=== PATIENT | male | born 1955 | race American Indian/Alaskan Native ===

== ENCOUNTER 2017-04-25 08:45 | Day surgery (SDC) | payer OTHER ==
[~2017-04-25] VITALS: Ht 177.8 cm; Wt 112.5 kg
[~2017-04-25 08:45] MED LIST: ASPIR-TRIN325 MG PO; FLOMAX0.4 MG PO; LANTUS100 UNITS/ SUB-Q; LIPITOR20 MG PO; LISINOPRIL20 MG PO; MORPHINE SULFAT15 MG PO; NEURONTIN300 MG PO; NORCO 5-325 TA1 EACH PO; NOVOLOG FL100 UNIT/1 SQ; ULTRAM50 MG PO; VITAMIN D250000 UNIT PO
--- NOTE | 2017-04-25 12:00 | NUR ---
04/25/17 1200 Lexie Arambula TO PACU, ORAL AIRWAY IN PLACE. NON RESPONSIVE. BLOOD SUGAR 121.
--- NOTE | 2017-04-25 12:31 | NUR ---
ICED WATER GIVEN. CALL LIGHT W/IN REACH. SANDWICH ORDERED FROM DIETARY.
--- NOTE | 2017-04-25 13:32 | NUR ---
PATIENT EATING LUNCH. GIVEN 1 TAB OF NORCO FOR PAIN. RIGHT KNEE DRESSING CDI. CSM TO RIGHT TOES WNL. IV SITE WNL. SCDs ON. VS CHECKED. CALL LIGHT WITHIN REACH. SISTER AT BEDSIDE.
[2017-04-25] MEDS ORDERED: ULTRAM50 MG PO (13:45)
--- NOTE | 2017-04-25 14:57 | NUR ---
1340: PATIENT ASSISTED OOB AND TO BATHROOM. VOID WITHOUT DIFFICULTY. PATIENT STATES READY TO GO HOME. PATIENT GETTING DRESSED. 1400: IV DC'D WNL. TIP INTACT. DRESSING APPLIED. DISCHARGE INSTRUCTIONS GIVEN TO PATIENT AND SISTER. PATIENT DISCHARGED TO HOME WITH SISTER VIA WHEELCHAIR.
--- NOTE | 2017-04-27 07:09 | OR ---
[facility] [address], [place] [address] Signed DATE OF OPERATION: 04/25/2017 SURGEON: Chelo Olivares MD PREOPERATIVE DIAGNOSIS: Torn medial meniscus, right knee. POSTOPERATIVE DIAGNOSIS: Torn medial meniscus, right knee with area about 8 x 8 mm full-thickness cartilage loss over the weightbearing portion of the medial femoral condyle. PROCEDURE: Right knee arthroscopy with partial medial meniscectomy. ANESTHESIA: General. SPECIMENS AND COMPLICATIONS: There were no specimens or complications. TOURNIQUET TIME: About 20 minutes. WHAT WAS TAKEN: The patient was taken to the operating room. After anesthesia was induced, airway secured, the right lower extremity was positioned prepped and draped in a routine sterile fashion. The leg was exsanguinated with an Esmarch bandage. Pneumatic tourniquet about the thigh was inflated to 300 mmHg pressure. The outflow cannula was inserted superomedially, the arthroscope anterolaterally. An anteromedial portal was created using transillumination and localization with a spinal needle. Diagnostic arthroscopy revealed a hypertrophic synovitis in the suprapatellar pouch. There were some small areas of grade 1 to grade 2 chondral change in the patellofemoral joint. The medial recess was unremarkable, except there was an area over the medial portion of the medial femoral condyle that had been denuded of articular cartilage, although this area did not appear to articulate with the patella. The medial compartment revealed a complex tear of the posterior horn of the medial meniscus and the aforementioned full-thickness chondral loss over the weightbearing portion of the medial femoral condyle. There was some fissuring in the tibial plateau, but no other lesions. A basket forceps was introduced through the anteromedial portal. The meniscal tear was completed. The several fragments were delivered out of the knee and then the edges were contoured with the motorized Electronically Signed By: CHELO OLIVARES MD 04/27/17 0709 PATIENT NAME: CHELO GANNON OPERATIVE REPORT DATE OF : 53 PHYSICIAN: CHELO OLIVARES MD REPORT #: [id number] REPORT IS CONFIDENTIAL AND NOT TO BE RELEASED WITHOUT AUTHORIZATION [facility] [address] [place] [id number] Signed [facility]. Intercondylar notch was unremarkable, as was the lateral compartment and the lateral recess. The knee was copiously irrigated and drained. The portals were closed and sterile dressings applied. The patient was awakened to the recovery room where he arrived in stable condition. Counts were correct and antibiotic protocols were followed. Chelo Olivares MD WFB/MODL /[id number] Electronically Signed By: CHELO OLIVARES MD 04/27/17 0709 PATIENT NAME: CHELO GANNON OPERATIVE REPORT DATE OF : 53 PHYSICIAN: CHELO OLIVARES MD REPORT #: [id number] REPORT IS CONFIDENTIAL AND NOT TO BE RELEASED WITHOUT AUTHORIZATION
== END 2017-04-25 14:00 | disposition home or self-care (01) ==
LOC: DS 08:45 → OPS 08:45 → DS 10:45 → OPS 10:45
PROVIDERS: Orthopaedic Surgery
PROC: 0SBC4ZZ Excision of Right Knee Joint, Percutaneous Endoscopic Approach (ICD-10-PCS; principal; 2017-04-25 10:45)
DX: S83.231A Complex tear of medial meniscus, current injury, right knee, initial encounter (principal); E11.9 Type 2 diabetes mellitus without complications; I51.9 Heart disease, unspecified
CPT/HCPCS: 01400; J0690; J1100; J1885; J2250; J2405; J2704; J3010; J3301; J7120

== ENCOUNTER 2020-05-10 20:04 | Emergency (ER) | payer MEDICARE, OTHER ==
[~2020-05-10] VITALS: Ht 177.8 cm; Wt 112.5 kg
[2020-05-10] MEDS ORDERED: METFORMIN HCL500 M1 PO (20:23)
[2020-05-10] MEDS ORDERED: TRAZODONE HCL50 MG PO (20:24)
== END 2020-05-10 22:40 | disposition home or self-care (01) ==
LOC: ED 20:04
DX: T81.31XA Disruption of external operation (surgical) wound, not elsewhere classified, initial encounter (principal); E11.40 Type 2 diabetes mellitus with diabetic neuropathy, unspecified; I25.2 Old myocardial infarction; E66.9 Obesity, unspecified; F17.200 Nicotine dependence, unspecified, uncomplicated; Z79.899 Other long term (current) drug therapy; Z79.4 Long term (current) use of insulin; Z79.891 Long term (current) use of opiate analgesic
CPT/HCPCS: 99283

== ENCOUNTER 2021-03-15 11:31 | Inpatient (IN) | payer MEDICARE, OTHER ==
[~2021-03-15] VITALS: Ht 177.8 cm; Wt 112.0 kg
[~2021-03-15 11:31] MED LIST changes: +METFORMIN HCL500 M1 PO; +TRAZODONE HCL50 MG PO; -VITAMIN D250000 UNIT PO; +VITAMIN D350 MCG PO
--- OUTSIDE RECORDS SUMMARY | 2021-03-15 11:34 | XMS ---
PreManage Notification: CHELO GANNON Security Regulatory Services Consultant Events No recent Security Events currently on file CRITERIA MET - [facility] CARE PROVIDERS [facility] 03/05/2019-[facility] PHONE: [phone] Elsa has no Care Guidelines for this patient. Care History Medical/Surgical 03/05/2019 [facility] \T\middot;\T\nbsp; PATIENT- [facility] ELIGIBLE \T\middot;\T\nbsp; PLEASE REFER PATIENT TO [facility] FOR NON EMERGENT MEDICAL NEEDS. \T\middot;\ T\nbsp; [facility] CAN SEE PATIENTS SAME DAY FOR APTS IF PATIENT CALLS FIRST THING IN THE MORNING. E.D. VISIT COUNT (12 MO[address] [facility] TOTAL 2 NOTE: Visits indicate total known visits. ED/UCC VISIT TRACKING (12 MO.) 03/15/2021 11:32 [facility] TYPE: Emergency COMPLAINT: - WOUND CARE 05/10/2020 20:05 [facility] TYPE: Emergency COMPLAINT: - RIGHT FOOT PAIN DIAGNOSES: - Other fdc (current) drug therapy - Pain in right foot - Disruption of external operation (surgical) wound, not elsewhere classified, initial encounter - Obesity, unspecified - Old myocardial infarction - Type 2 diabetes mellitus with diabetic neuropathy, unspecified - FDC (current) use of opiate analgesic - supervisor intermediates (current) use of insulin - Nicotine dependence, unspecified, uncomplicated INPATIENT VISIT TRACKING (12 MO.) No inpatient visits to display in this time frame [email or web address]
[2021-03-15] MEDS ORDERED: OMEPRAZOLE20 MG PO (12:39)
[2021-03-15] MEDS ORDERED: OZEMPIC1 MG/0.71 SUB-Q (16:04)
[2021-03-15] MEDS ORDERED: MAG-OXIDE400 MG PO (16:32)
[2021-03-15] MEDS ORDERED: CALCIUM500 MG PO (16:33)
[2021-03-15] MEDS ORDERED: HUMIRA PEN40 MG/0.4 SUB-Q (16:37)
[2021-03-15] MEDS ORDERED: ASPIRIN81 MG PO (16:50)
[2021-03-15] MEDS ORDERED: TRIAMCINOLONE A15 G1 TOP (16:59)
[2021-03-15] MEDS ORDERED: GLUCOSE4 GM PO (17:03)
--- NOTE | 2021-03-15 18:24 | NUR ---
PT ADMITTED TO [facility] ALERT, ORIENTED, AND COOPERATIVE. ORIENTED TO ROOM AND CALL SYSTEM FOOD ORDERED. ABX INFUSING. PT AGREES HE IS HAVING PAIN, PHARMACY IN TO CLARIFY MEDICATIONS. PAIN MEDS ADMINISTERED PER ORDERS.
--- NOTE | 2021-03-15 18:25 | NUR ---
medications reconciled using [facility] pharmacy records and patient interview
--- NOTE | 2021-03-15 19:25 | NUR ---
REPORT RECEIVED FROM TROY DOWNS. pt IN BED, DR. GARCIA IN ROOM DEBRIDING FOOT. CULTURES SENT TO LAB. pt DENIES NEED FOR PAIN MEDICATION. STATES "I'M ALRIGHT FOR NOW". CALL LIGHT IN REACH.
--- NOTE | 2021-03-15 20:35 | NUR ---
CALL LIGHT ANSWERED. SBA TO RESTROOM, GAIT STEADY, pt DENIES NEED FOR WALKER STATES DOESN'T USE AT HOME. DREESSING CDI RIGHT FOOT. CHRONIC TINGLING AND NUMBNESS BILATERALLY IN TOES. pt C/O 8/10 "THROBBING PAIN" IN RIGHT FOOT AND CORDERO. IV SITE FLUSHED WNL, IVF INFUSING ORDERED. CBG 129. pt REQUESTING SANDWICH, WIND FIELD SERVICE MANAGER NOTIFIED. ASSESSMENT COMPLETE. MRI FORM FILLED OUT WITH pt. CALL LIGHT IN REACH. LIGHTS OFF IN ROOM.
--- NOTE | 2021-03-15 22:00 | NUR ---
SANDWICH BOX AND SUGAR FREE JELLO PROVIDED TO pt. NO ADDITIONAL NEEDS. CALL LIGHT IN REACH.
--- NOTE | 2021-03-15 22:35 | NUR ---
pt RESTING IN BED WITH EYES CLOSED. LIGHTS TURNED OFF IN ROOM FOR pt. pt DENIES NEEDS. IVF INFUSING WNL. CALL LIGHT IN REACH.
--- NOTE | 2021-03-16 00:05 | NUR ---
CALL LIGHT ANSWERED. ASSISTED TO TURN TV OFF. NO ADDITIONAL NEEDS. CALL LIGHT IN REACH.
--- NOTE | 2021-03-16 02:11 | NUR ---
IV PUMP ALARMING, NEW BAG IVF INFUSING WNL. pt UP SBA TO BED SIDE FOR VOID. URINAL EMPTIED. DENTURES IN CUP. pt RATES PAIN 7/10 IN RIGHT PLANTAR FOOT, RIGHT CORDERO. PRN PAIN MEDICATION ADMINISTERED. ASSESSMENT COMPLETE. CALL LIGHT IN REACH. LIGHTS OFF IN ROOM.
--- NOTE | 2021-03-16 04:10 | NUR ---
CONFERENCE PLANNER RN NOTIFIED OF NEED FOR VANCOMYCIN ANTIBIOTIC.
--- NOTE | 2021-03-16 05:30 | NUR ---
IN pt ROOM FOR IV ANTIBIOTIC ADMINISTRATION. pt AWAKE WATCHING THE NEWS. RATES PAIN 6-7/10 IN RIGHT CORDERO, FOOT. SCHEDULED PAIN MEDICATION ADMINISTERED. IV FLUSHED WNL, BRISK BLOOD RETURN. IV ANTIBIOTIC INFUSING ORDERED. URINAL EMPTIED. VSS. COFFEE PROVIDED. CALL LIGHT IN REACH. NO ADDITIONAL REQUESTS.
--- NOTE | 2021-03-16 06:07 | NUR ---
pt APPEARED TO REST WELL THIS SHIFT. DRESSING CDI. SCHEDULED AND PRN PAIN MEDICATION ADMINISTERED FOR PAIN CONTROL IN RIGHT PLANTAR FOOT AND RIGHT CORDERO PAIN. UP TO SIDE OF BED INDEPENDENTLY TO USE URINAL. VOIDING QS. IVF INFUSING WNL ORDERED THROUGHOUT SHIFT.
--- NOTE | 2021-03-16 07:23 | NUR ---
HANDOFF REPORT TO TROY VELASQUEZ. pt RATES PAIN 6/10 IN RIGHT FOOT, CORDERO. PRN PAIN MEDICATION ADMINISTERED REQUESTED. IV ANTIBIOTIC INFUSING WNL. CALL LIGHT IN REACH.
--- NOTE | 2021-03-16 07:40 | NUR ---
this rn received report from dora savage. pt states taht he is ready for breakfast, breakfast ordered by this rn.
--- NOTE | 2021-03-16 08:22 | NUR ---
this rn in pts room with taylor [facility] nursing agency manager. taylor to give 11units of insulin this am. pt comfortable and agreeable to this. pt reports that his pain is improved from this am after the oxy
--- NOTE | 2021-03-16 08:36 | NUR ---
pt down to mri at this time. t[facility] nursing home aide to accompany pt
--- NOTE | 2021-03-16 10:00 | NUR ---
pt arrived back from mri about 10mins previous. taylor and this rn in pts room to give pts meds. taylor [facility] student to flush iv and hang meds- done with supervision of this rn and done within practice standards all questions answered questions to the best of the ability
--- NOTE | 2021-03-16 13:45 | NUR ---
Pt lives alone in [place] income [place]. States this serves his needs well. Daughter has encouraged him to get a bigger home, he declines as he likes living alone. He uses [facility] transport for medical. Friends give him rides to town for shopping and he uses a taxi home. He has canes but rarely uses. He feels he does very well on his own and is not interested in HH if he reqires a dressing change on dc. He would accept help from [facility] nurses if they are seeing pts. Denies financial issues. Plans on dc to home when cleared medically. His captain waiter is Dr Pippa Aj in [place] [phone] and he plans to follow with her on discharge. Pt denies needs and plans on dc to home.
--- NOTE | 2021-03-16 13:49 | NUR ---
PT SITTING IN CHAIR-ALERT, ORIENTED AND LUNCH HAD JUST BEEN DELIVERED TO HIM. STAYED JUST A MOMENT, PT SAID HE WOULD LIKE NURSE ADVISOR TO VISIT, IF POSSIBLE. WAS ABLE TO CONNECT WITH [facility] FOLLOWING MASS. HE WILL VISIT PT. WILL FOLLOW NEEDED
--- NOTE | 2021-03-16 14:00 | NUR ---
THIS RN IN PTS ROOM TO GIVE PT PAIN MEDS. PETTY [facility] NURSING IN ROOM TO DO VITALS. PT STATES THAT HE IS GETTING COMFORTABLE IN BED AT THIS TIME.
--- NOTE | 2021-03-16 19:20 | NUR ---
REPORT RECEIVED FROM TROY VELASQUEZ. pt RESTING IN BED WITH EYES CLOSED, BREATHING EQUAL AND UNLABORED. LIGHTS OFF IN ROOM. IVF INFUSING WNL.
--- NOTE | 2021-03-16 20:00 | NUR ---
CALL LIGHT ANSWERED. pt REQUESTING SOMETHING TO EAT. LOGISTICS ENGINEER NOTIFIED. pt SITTING UP IN BED. NO ADDITIONAL NEEDS AT THIS TIME.
--- NOTE | 2021-03-16 21:01 | NUR ---
SANDWICH BOX PROVIDED TO pt. CBG WNL, NO SS INSULINS ADMINISTERED. SCHEDULED MEDICATIONS ADMINISTERED. pt C/O PAIN 7/10 IN RIGHT FOOT, CORDERO. PRN PAIN MEDICATION ADMINISTERED. ASSESSMENT COMPLETE. URINAL EMPTIED. TRAY TABLE CLEARED. ICE WATER PROVIDED. pt WILL CALL WHEN FINISHED EATING FOR VS. CALL LIGHT IN REACH.
--- NOTE | 2021-03-16 23:42 | NUR ---
pt RESTING IN BED WITH EYES CLOSED. BREATHING EQUAL AND UNLABORED. IVF INFUSING WNL. NO DISTRESS NOTED.
--- NOTE | 2021-03-17 00:22 | NUR ---
IV PUMP ALARMING. NEW BAG IVF INFUSING WNL. pt RESTING IN BED, SNORING. LIGHTS OFF IN ROOM.
--- NOTE | 2021-03-17 03:10 | NUR ---
CHECKED ON pt. SLEEPING ON RIGHT SIDE. SNORING. NO DISTRESS NOTED.
--- NOTE | 2021-03-17 03:51 | NUR ---
IN ROOM FOR IV ANTIBIOTIC ADMINISTRATION. pt RESTING ON LEFT SIDE WITH EYES CLOSED. IV ANTIBIOTIC INFUSING WNL. URINAL EMPTIED. CALL LIGHT IN REACH.
--- NOTE | 2021-03-17 05:41 | NUR ---
CALL LIGHT ANSWERED. pt PROVIDED WITH WARM BLANKET REQUESTED. COFFEE AND ICE WATER PROVIDED. IVF INFUSING WNL. ASSESSMENT COMPLETE. pt RATES PAIN 9/10 IN RLE, SCHEDULED PAIN MEDICATION ADMINISTERED AT THIS TIME. URINAL EMPTIED. CALL LIGHT IN REACH. pt IS CONCERNED ABOUT PETS, REQUESTING RN CALL BROTHER CLOSE TO 7 TO HAVE HIM GO BY HIS HOUSE. NO ADDITIONAL NEEDS AT THIS TIME.
--- NOTE | 2021-03-17 07:35 | NUR ---
this rn received report from huy savage. pt appears to be resting at this time with respirations noted and call light within reach
--- NOTE | 2021-03-17 07:50 | NUR ---
THIS RN IN PTS ROOM TO GET PTS BLOOD SUGAR. PT STATES THAT HIS PAIN IS DOING GOOD TODAY. PT REQUESTING COFFEE THIS AM.
--- NOTE | 2021-03-17 08:50 | NUR ---
THIS RN IN PTS ROOM TO GIVE MORING MEDS. PT HAS NO REPORTS OF PAIN THIS. PT JUST DICUSSING ABOUT WHERE HIS BROTHER WORKS AND HOW HE NEEDS HIM TO GO LET HIS DOGS OUT. PT HAS NO OTHER CONCERNS AT THIS TIME
--- NOTE | 2021-03-17 10:26 | NUR ---
Patient's BP was 145/75. MAP 93 on left arm. Vitals are complete. RN has been notified.
--- NOTE | 2021-03-17 12:07 | NUR ---
THIS RN IN PTS ROOM TO GET PTS BLOOD SUGAR. PT WAS JUST UP TO USE RESTROOM. PT REPORTS PAIN OF 8/10. THIS RN PROVIDED PT WITH 5MG OF OXY FOR PAIN.
--- NOTE | 2021-03-17 13:08 | NUR ---
SPOKE WITH PATIENT IN ROOM. PATIENT VERY CHEERFUL. HIS ONLY CONCERN IS FOR HIS DOGS. HE SAYS HE SPOKE WITH SOMEONE WHO WAS SUPPOSED TO ASK HIS BROTHER NAHUM DAVE TO GO CHECK ON HIS DOGS. HE IS WORRIED THEY MIGHT BE OUT OF WATER BY NOW. STATES THEY HAVE AN AUTOMATIC FEEDER. 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 ASKS ME TO CALL THE [place] [employer] TO SEE IF I CAN TALK WITH HIM. CALLED [place] [employer]. THEY TRANSFERRED ME TO Room n House PHONE. VOICEMAIL LEFT. LEFT MY CALLBACK NUMBER IF HE HAS QUESTIONS. ASKED HIM TO CALL HIS BROTHERS CELL PHONE IF HE HAS THE NUMBER OR THE HOSPITAL ROOM 123.
--- NOTE | 2021-03-17 14:22 | NUR ---
PT RESTING IN BED, WELCOMED ME IN. THANKED ME FOR HAVING COME BY AND WOULD LIKE HIM TO COME THURS.WILL CONTACT AND INFORM EXPORT SPECIALIST. PT FEELS SOME- WHAT BETTER, WOULD LIKE TO REST. GAVE BLESSING, REQUESTED LIGHTS OFF. WILL FOLLOW NEEDED
--- NOTE | 2021-03-17 14:39 | NUR ---
Patient vitals, I&Os are done. Call light is in reach. Patient is in bed.
--- NOTE | 2021-03-17 18:07 | NUR ---
RN is wthin the room. Call light is in reach.
--- NOTE | 2021-03-17 19:25 | NUR ---
SHIFT REPORT RECEIVED FROM DAYSHIFT TROY VELASQUEZ AT BEDSIDE. pt AWAKE AND RESTING IN BED. pt REPORTS IV SITE IS "HURTING", THIS RN AND TROY VELASQUEZ ASSESSING. SCANT SWELLING WITH HARDNESS NOTED ABOVE IV SITE. RON RN REMAINS IN ROOM TO ATTEMPT TO PLACE NEW IV. NO ADDITIONAL NEEDS OR CONCERNS, CALL LIGHT IN REACH.
--- NOTE | 2021-03-17 19:42 | NUR ---
per petty in pharmacy night shift manager is infuse pts vanco as ordered, do not retime- this rn ensured that te rn was aware of this
--- NOTE | 2021-03-17 20:45 | NUR ---
IN TO GET VITALS, SNACK PROVIDED, ICE WATER FILLED, PT ASKING ABOUT GETTING A PAIN PILL, RN INFORMED, NO FURTHER NEEDS AT THIS TIME
--- NOTE | 2021-03-17 21:00 | NUR ---
SPOKE TO NAHED FROM LAB REGARDING ORDERED BLOOD CULTURES FOR 03/15/21. ORDERS READ "ORDERED" AND NOT "RECEIVED". PER NAHED FROM LAB, UNABLE TO FIND CONFIRMATION OF COLLECTION OF BLOOD CULTURES. PAPER CUP HANDLE MACHINE OPERATORTROY OH MADE AWARE, PER PAPER CUP HANDLE MACHINE OPERATOR, WILL UPDATE ROUNDING REPORT AND HAVE DAYSHIFT UPDATE DR GARCIA IN AM WHEN MD ARRIVES.
--- NOTE | 2021-03-17 22:00 | NUR ---
ASSESSMENT COMPLETE, PREVIOUS IV TO LEFT WRIST/FOREARM REMOVED, CATHETER TIP INTACT. NEW IV STARTED BY THIS RN TO RIGHT WRIST, BRISK BLOOD RETURN NOTED. pt A/O BUT FORGETFUL AT TIMES, BED ALARM ON FOR SAFETY. IV FLUIDS RESUMED DIRECTED. WOUND TO RLE C/D/I. CMS INTACT PER pt, DENIES NUMBNES AND TINGLING. REPORTS 9/10 PAIN IN RLE, PRN PAIN MEDICATION ALSO GIVEN. NO FURTHER NEEDS. CALL LIGHT IN REACH.
--- NOTE | 2021-03-18 00:43 | NUR ---
REPORT GIVEN TO TROY PANDYA. TROY PANDYA TO RESUME CARE OF pt AND MADE AWARE OF ORDERED BLOOD CULTURES-SEE RN NOTE ON 03/17/21 AT 2100.
--- NOTE | 2021-03-18 06:14 | NUR ---
SEE PAPER CHARTING FOR OFFAL ROLLER PATIENT CARE FOR DOWN TIME
--- NOTE | 2021-03-18 07:32 | NUR ---
REPORT RECEIVED FROM TROY PANDYA. PT AWAKE AND RESTING IN BED. PT REPORTS 8/ PAIN, "BECAUSE I HAD TO DO THAT MRI." PT RECENTLY GIVEN PAIN MEDICATION, WILL CONTINUE TO MONITOR. PT DENIES ADDIITONAL REQUESTS OR COMPLAINTS, TELLING STORIES ABOUT HIS DOGS AT HOME. DRESSING C/D/I AT THIS TIME. BED RAILS UP. CALL LIGHT WITHIN REACH.
--- NOTE | 2021-03-18 07:49 | NUR ---
CALL MADE TO LAB TO CHECK STATUS OF BLOOD CULTURES. LAB WILL CALL FLOOR BACK.
--- NOTE | 2021-03-18 08:17 | NUR ---
MORNING ASSESSMENT AND MEDICATION DUE. PT UP TO CHAIR. DR. GARCIA TO BEDSIDE FOR DRESSING CHANGE. NEW ORDRES GIVEN, REPEAT BACK PERFORMED AND ORDERS ENTERED. DRESSING CHANGED BY DR. GARCIA. PT TOLERATED WELL. PT REPORTS 9/10 PAIN IN RIGHT FOOT AFTER DRESSING CHANGE. PT REQUESTS ADDITIONAL PAIN MEDICATION. SEE MAR FOR MEDIACTION GIVEN. PT FORGETFUL AT TIMES. PT DENIES NUMBNESS AND TINGLING IN FEET. PT IS ABLE TO IDENTIFY TOE THAT IS TOUCHED. SHOE IN PLACED OVER PTS NEW DRESSING. DRESSING C/D/I AT THIS TIME. WHEN WOUND WAS UNCOVERED IT MEASURES 2.2CM X1.1CM BY 0.8CM MEASURED BY DR. GARCIA. RIGHT LOWER LEG REMAINS MILDLY SWOLLEN, NO PITTING EDEMA NOTED. LAST BOWEL MOVEMENT NOTED TO BE 03/14, PT DENIES CONSTIPATION. MEDICATIONS FOR BOWEL MANAGMENT OFFERED, PT DECLINES. BOWEL TONES REMAIN ACTIVE. PT REMAINS UP TO CHAIR. CALL LIGHT WITHIN REACH. NO ADDITIONAL REQUESTS OR COMPLAINTS.
--- NOTE | 2021-03-18 09:47 | NUR ---
THIS RN TO ROOM TO CHECK ON PT. PT RESTING IN BED WITH EYES CLOSED. RESPIRATIONS EVEN AND UNALBORED. IV ABX COMPLETE. IV FLUSHED, IV FLUIDS CONTINUE. PT ALLOWED TO REST. BED RAILS UP. CALL LIGHT WITHIN REACH.
--- NOTE | 2021-03-18 10:52 | NUR ---
THIS RN TO ROOM TO CHECK ON PT. PT AWAKE, ALERT AND ORIENTED. PT RPEORTS PAIN IN HIS FOOT IS "STILL A 9" BECAUSE I'M MOVING SO MUCH. PT NOTED TO HAVE BEEN RESTING IN BED FOR THE LAST 2 HOURS. PT ADVISED THAT NO ADDITONAL PAIN MEDICATION IS DUE AT THIS TIME. PT STATES "THAT'S OK, I DON'T NEED MORE RIGHT NOW, I JUST DON'T MOVE MUCH." PT REQUESTS COFFEE, PROVIDED. NO ADDITIONAL REQUESTS OR COMPLAINTS. CALL LIGHT WITHIN REACH. BED RAILS UP.
--- NOTE | 2021-03-18 12:06 | NUR ---
THIS RN TO ROOM TO CHECK ON PT. STAND BY ASSIST UP TO CHAIR FOR LUNCH. WALKING BOOT IN PLACE. BLOOD SUGAR RECORDED WITH SLIDING SCALE INSULIN GIVEN. BLOOD INITIAL BLOOD SUGAR TAKEN BY STUDENT RN WITH INCORRECT PROCEEDURE, REPEAT BLOD SUGAR TAKEN BY THIS RN WITH SLIDING SCALE ADJUSTED ACCORDINGLY. PT REMAINS UP TO CHAIR, EATING LUNCH. PT REPORTS PAIN AT 8/10 IN RIGHT LOWER EXTREMITY. PT CONTINUES TO DECLINE TYELNOL, REPORTING HE WILL WAIT UNTIL 1300 FOR OXYCODONE. NO ADDITIONAL REQUESTS OR COMPLAINTS. CALL LIGHT WITHIN REACH.
--- NOTE | 2021-03-18 14:00 | NUR ---
No change in plan for dc.
--- NOTE | 2021-03-18 14:03 | NUR ---
PT IS ALERT, ORIENTED AND SITTNG IN CHAIR. HE MENTIONED HE IS FEELING MUCH BETTER-MAINLY KNOWING HIS DOGS ARE BEING LOOKED AFTER FOR HIM. HE DID SAY HE SLEPT WELL. HOPES TO DC TOMORROW. ENJOYED VISIT FROM [facility]. GAVE BLELETICIAING WILL FOLLOW
--- NOTE | 2021-03-18 15:19 | NUR ---
ROUNDED ON PT. PT IN BED. DENEIS PAIN. ASSESSMENT COMPLETED. PT DENEIS PAIN. STUDENT NURSE IN ADMINISTERING SCHEDULED MEDS. PT REFUSED DULCOLAX STATING HE NORMALLY HAS BOWEL MOVEMENTS EVERY 4 DAYS AND DOES NOT WANT DIARRHEA. DULCOLAX HELD. PERSONAL ITEM WITHIN REACH. PT DENIES FURTHER NEEDS.
--- NOTE | 2021-03-18 15:27 | NUR ---
Discussed new order for Dulcolax with pt. Pt states going "4-5 days" between bowel movements is normal for pt. Pt refused Dulcolax stating he is afraid he will not make it to the bathroom in time to have a bowel movement. Discussed the option of a bedside commode with pt, but pt refused. Pt also states he has had a laxative in the past at [facility] that was "like rocket fuel" and he did not want to take anything like that again. Discussed with pt the option of taking a more gentle stool softener, and suggested pt discuss this with the provider. Pt agreed to discuss stool softener options with provider for when pt returns home. Notified charge nurse of this interaction.
--- NOTE | 2021-03-18 16:45 | NUR ---
MEDICAITONS DUE. THIS RN TO ROOM. PT RESTING IN ROOM. PT TELLS STOIRES ABOUT HOME AND REPORTS HE WAS FEELING FRUSTRATED ABOUT BEING "PUSHED" TO TAKE MEDICATIONS FOR CONSTIPATION. PT REMINDED THAT HE HAS AUTONOMY AND CAN MAKE DECISIONS ABOUT WHAT MEDICATIONS HE WANT'S AND DOSEN'T. IV ASSESSED, PT REPORTS PAIN WITH FLUSHING. NEW IV STARTED TO LEFT FORARM, BRISK BLOOD RETURN NOTED, VANCO STARTED THROUGH NEW IV SITE. PT AWIATING DINNER. NO ADDITIONAL REQUESTS OR COMPLAINTS. CALL LIGHT WITHIN REACH. BED RAILS UP.
--- NOTE | 2021-03-18 17:26 | NUR ---
DINNER DELIVERED TO PT. INSULIN GIVEN. PT UP TO CHAIR FOR DINNER. PT REPORTS 9/10 PAIN IN HIS RIGHT FOOT. MEDICATION GIVEN. PT DENIES ADDITIONAL REQUESTS OR COMPLAINTS. CALL LIGHT WITHIN REACH.
--- NOTE | 2021-03-18 18:15 | NUR ---
THIS RN TO ROOM TO CHECK ON PT. PT FINISHED WITH DINNER AND BACK TO BED. 1 PERSON STAND BY ASSIST BACK TO BED. PT REPORTS PAIN TO RLE HAS IMPROVED WITH MEDICATION ADMINISTRATION, NOW 10/22. DRESSING REMAINS C/D/I. PT DENIES ADDITIONAL REQUESTS OR COMPLAINTS. CALL LIGHT WITHIN REACH. BED RAILS UP.
--- NOTE | 2021-03-18 18:26 | NUR ---
PT ERE FOR RIGHT FOOD DIABETIC FOOT ULCER. PT UP WITH 1 PERSON ASSIST TO SHOWER CHAIR AND TO AMBULATE IN ROOM. PT TOELRATING 60G CARB DIET WITH GOOD APPITITE. BLOOD SUGARS CHECKED WITH MEALS AND SLIDING SCALE WELL SCHEDULED INSULIN GIVEN. RIGHT LOWER EXTERMITY REMAINS MILDLY SWOLLEN COMPARED TO LLE. NEW DRESSING PLACED AND WOUND CLEANED THIS MORNING BY DR. GARCIA. DRESSING CHANGE ORDERS PLACED FOR Q2 DAYS. BLOOD CULTURES DC'D. WALKING BOOT IN PLACE FOR ALL AMBULATION. NEW IV FOR VANCO INFUSION TO LEFT FORARM. BOTH IV'S NOW SALINE LOCKED. PT VOIDING QUANTITY SUFFICIENT. PT UESE CALL LIGHT AND MAKES NEEDS KNOW.
--- NOTE | 2021-03-18 19:20 | NUR ---
BEDSIDE REPORT FROM QUINCY SIMMONS. PT SITTING UP IN RECLINER. HE HAS SURGICAL SHOE ON, PER REPORT PT HAS BEEN INDEPENDENT AND APPROPRIATE OVER SHIFT STEADY ON HIS FEET. SHE REPORTED THAT HE REFUSED BM MEDICATIONS TODAY AND WAS IRRITATED WITH THE COMMUNICATION SITUATION WITH STUDENT RN, THIS WAS MANAGED AND SERVICE RECOVER COMPLETE.
--- NOTE | 2021-03-18 22:04 | NUR ---
PT RESTING IN BED HE REQUESTS PAIN MEDICATION WITH PAIN 8/10 RIGHT FOOT, PRN OXYCODONE GIVEN AT THIS TIME. HS MEDS AND ASSESSMENT COMPLETE. NO OTHER CONCERNS OR QUESTIONS, CALL LIGHT IN REACH.
--- NOTE | 2021-03-19 00:41 | NUR ---
PT JUST BACK TO BED AFTER HAVING BEEN UP TO VOID AT BEDSIDE WITH URINAL, HE REPORTS HE IS HAVING DIFFICULTY SLEEPING WITH OUT THE RHYTHM OF THE IV POLE NOISE. NO OTHER REQUESTS, URINAL EMPTIED AND CHARTED. CALL LIGHT IN REACH
--- NOTE | 2021-03-19 03:36 | NUR ---
PT RESTING IN BED EYES CLOSED RR EVEN SNORING NOTED. NO DISTRESS NOTED ON ROUNDING.
--- NOTE | 2021-03-19 07:40 | NUR ---
REPORT RECEIVED. PT AWAKE IN BED. DENEIS PAIN. BREAKFAST ORDERED BY CLAIM MANAGER. PT DENIES FURTHER NEEDS. CALL LIGHT IN REACH.
--- NOTE | 2021-03-19 08:04 | NUR ---
PT SITTING UP IN CHAIR EATING BREAKFAST. WHITE BOARD UPDATED, CALL LIGHT WITHIN REACH. PT REFUSED AM CARE. NO FURTHER NEEDS AT THIS MOMENT.
--- NOTE | 2021-03-19 09:42 | NUR ---
PT BACK IN BED WATCHING TV. CALL LIGHT WITHIN REACH, NO FURTHER NEEDS AT THIS TIME.
--- NOTE | 2021-03-19 10:00 | NUR ---
SPOKE WITH PATIENT IN ROOM. PATIENT IS UP IN CHAIR. STAFF IN ROOM. PATIENT STATES HE STILL PLANS TO RETURN HOME AT DISCHARGE. CAN CALL HIS FRIEND FOR A RIDE HOME. THANKED ME FOR HELPING HIM GET AH[employer] OF [employer] ON MONDAY SO HIS DOGS COULD GET CHECKED ON. STATES HE ARRANGED THE HOUSING UNIT TO GO IN EVERYDAY TO LET THEM OUT AND MAKE SURE THEY HAVE FOOD AND WATER. HE IS MUCH RELIEVED ON THIS. HE FEELS HE WOULD DO FINE GOING HOME ON OWN. HE PLANS TO F/U WITH NOEMI. HAS NO QUESTIONS AT THIS TIME.
--- NOTE | 2021-03-19 10:02 | NUR ---
ASSESSMENT COMPLETED. PT IN BED.. DRESSING TO FOOT C/D/I. PT REPORTS PAIN 8/ BUT REPORTS THAT ALL THE PAIN IN HIS BODY. PT DOES HAVE CHRONIC PAIN. PRN PAIN MEDS ADMISNTERED BY STUDENT NURSE AND INSTRUCTOR. LUNGS DIM IN BASES. PT DENEIS FURTHER NEEDS. ABX COMPLETED AND PT WAS SALINE LOCKED.
--- NOTE | 2021-03-19 10:53 | NUR ---
PT ALERT, ORIENTED AND LAYING IN BED WATCHING TV. PT HOPES TO DC TODAY, THANKFUL AGAIN HIS DOGS ARE CARED FOR. PT SEEMS TO BE PLEASED THAT [facility] HAS BEEN COMING BY. I THINK IT HAS HELPED HIM RECONNECT WITH HIS PENTECOSTALISM ROOTS. PT STATED HIS A1C IS DOWN TO 7. HE SAID HE NEVER DID CONSIDER THAT IT WOULD GET THAT LOW. GAVE ENCOURAGEMENT, HAD PRAYER WITH PT. WILL FOLLOW
--- NOTE | 2021-03-19 11:20 | NUR ---
PT FRUSTRATED, WANTING TO LEAVE. EXPLAINED WE ARE WAITING FOR SENSITIVITY.. ENOURAGED PT TO STAY POSITIVE AND DISCUSSED LABS. PT WANTED TO GET UP TO CAHIR AND DRINK COFFEE.
[2021-03-19] MEDS ORDERED: LISINOPRIL20 MG PO (12:30)
[2021-03-19] MEDS ORDERED: CIPROFLOXACIN500 MG PO (12:31)
[2021-03-19] MEDS ORDERED: AMOXICILLIN500 MG PO (12:32)
--- NOTE | 2021-03-19 12:40 | NUR ---
OFFERED PT A SHOWER. PT REFUSED. CALL LIGHT WITHIN REACH, NO FURTHER NEEDS AT THIS TIME.
--- NOTE | 2021-03-19 13:45 | NUR ---
DISCHARGE ISTRUCTIONS PROVIDED. PT WITH NO QUESTIONS. IV'S DC'D AND WNL. VITALS STABLE. PT WHEELED OUT.
== END 2021-03-19 13:30 | disposition home or self-care (01) | DRG 623 ==
LOC: ED 11:31 → MS 15:45
PROVIDERS: ADMIT Internal Medicine; ATTEND Internal Medicine
PROC: 0JBQ0ZZ Excision of Right Foot Subcutaneous Tissue and Fascia, Open Approach (ICD-10-PCS; principal; 2021-03-15)
DX: E11.628 Type 2 diabetes mellitus with other skin complications (principal); L03.115 Cellulitis of right lower limb; E11.52 Type 2 diabetes mellitus with diabetic peripheral angiopathy with gangrene; I96 Gangrene, not elsewhere classified; L97.413 Non-pressure chronic ulcer of right heel and midfoot with necrosis of muscle; E11.621 Type 2 diabetes mellitus with foot ulcer; E11.65 Type 2 diabetes mellitus with hyperglycemia; I10 Essential (primary) hypertension; G89.4 Chronic pain syndrome; L40.9 Psoriasis, unspecified; Z95.5 Presence of coronary angioplasty implant and graft; E11.42 Type 2 diabetes mellitus with diabetic polyneuropathy; E78.5 Hyperlipidemia, unspecified; F17.200 Nicotine dependence, unspecified, uncomplicated; Z89.411 Acquired absence of right great toe; Z89.421 Acquired absence of other right toe(s); Z79.4 Long term (current) use of insulin; I25.10 Atherosclerotic heart disease of native coronary artery without angina pectoris; B96.20 Unspecified Escherichia coli [E. coli] as the cause of diseases classified elsewhere; B95.2 Enterococcus as the cause of diseases classified elsewhere; B96.5 Pseudomonas (aeruginosa) (mallei) (pseudomallei) as the cause of diseases classified elsewhere
CPT/HCPCS: 73630; 73723; 80048; 80053; 80202; 83036; 83605; 85025; 85651; 86140; 87040; 87070; 87075; 87076; 87077; 87186; 87205; 99284-25; A9270; A9577; C9803; J0696; J1650; J1815; J3370; J7030; J7060; U0003

== ENCOUNTER 2021-04-11 23:09 | Inpatient (IN) | payer MEDICARE, OTHER ==
[~2021-04-11] VITALS: Ht 177.8 cm; Wt 103.9 kg
[~2021-04-11 23:09] MED LIST changes: +AMOXICILLIN500 MG PO; +ASPIRIN81 MG PO; +CALCIUM500 MG PO; +CIPROFLOXACIN500 MG PO; +GLUCOSE4 GM PO; +HUMIRA PEN40 MG/0.4 SUB-Q; +MAG-OXIDE400 MG PO; +OMEPRAZOLE20 MG PO; +OZEMPIC1 MG/0.71 SUB-Q; +TRIAMCINOLONE A15 G1 TOP
--- OUTSIDE RECORDS SUMMARY | 2021-04-11 23:12 | XMS ---
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 - 2 Visits in 30 Days [facility] PROVIDERS [facility] Case Management 03/17/2021-[facility] PHONE: [phone] [facility] 03/05/2019-[facility] PHONE: [phone] Elsa has no Care Guidelines for this patient. Care History Medical/Surgical 03/05/2019 [facility] \T\middot;\T\nbsp; PATIENT- [facility] ELIGIBLE \T\middot;\T\nbsp; PLEASE REFER PATIENT TO [facility] FOR NON EMERGENT MEDICAL NEEDS. \T\middot;\ T\nbsp; [facility] CAN SEE PATIENTS SAME DAY FOR APTS IF PATIENT CALLS FIRST THING IN THE MORNING. E.D. VISIT COUNT (12 MO.) 3 [facility] TOTAL 3 NOTE: Visits indicate total known visits. ED/UCC VISIT TRACKING (12 MO.) 04/11/2021 23:09 [facility] [place] TYPE: Emergency COMPLAINT: - CHEST PAIN 03/15/2021 11:32 [facility] [place] TYPE: Emergency COMPLAINT: - WOUND CARE 05/10/2020 20:05 [facility] [place] TYPE: Emergency COMPLAINT: - RIGHT FOOT PAIN DIAGNOSES: - Other alf (current) drug therapy - Pain in right foot - Disruption of external operation (surgical) wound, not elsewhere classified, initial encounter - Obesity, unspecified - Old myocardial infarction - Type 2 diabetes mellitus with diabetic neuropathy, unspecified - intermodal dispatcher (current) use of opiate analgesic - custodial (current) use of insulin - Nicotine dependence, unspecified, uncomplicated INPATIENT VISIT TRACKING (12 MO.) 03/15/2021 15:45 [facility] [place] TYPE: Medical Surgical COMPLAINT: - DIABETIC FOOT WOUND DIAGNOSES: - Type 2 diabetes mellitus with hyperglycemia - Non-pressure chronic ulcer of right heel and midfoot with necrosis of muscle - Non-pressure chronic ulcer of right heel and midfoot with necrosis of muscle - Cellulitis of right lower limb - Type 2 diabetes mellitus with other skin complications - Type 2 diabetes mellitus with foot ulcer - Acquired absence of right great toe - Type 2 diabetes mellitus with foot ulcer - Enterococcus as the cause of diseases classified elsewhere - Type 2 diabetes mellitus with other skin complications - Acquired absence of other right toe(s) - Acquired absence of other right toe(s) - Atherosclerotic heart disease of [place] coronary artery without angina pectoris - Atherosclerotic heart disease of [place] coronary artery without angina pectoris - Type 2 diabetes mellitus with diabetic polyneuropathy - custodial (current) use of insulin - Psoriasis, unspecified - Acquired absence of right great toe - Gangrene, not elsewhere classified - intermodal dispatcher (current) use of insulin - Presence of coronary angioplasty implant and graft - Unspecified Escherichia coli [E. coli] as the cause of diseases classified elsewhere - Essential (primary) hypertension - Pseudomonas (aeruginosa) (mallei) (pseudomallei) as the cause of diseases classified elsewhere - Gangrene, not elsewhere classified - Chronic pain syndrome - Unspecified Escherichia coli [E. coli] as the cause of diseases classified elsewhere - Hyperlipidemia, unspecified - Type 2 diabetes mellitus with diabetic peripheral angiopathy with gangrene - Hyperlipidemia, unspecified - Type 2 diabetes mellitus with diabetic peripheral angiopathy with gangrene - Pseudomonas (aeruginosa) (mallei) (pseudomallei) as the cause of diseases classified elsewhere - Chronic pain syndrome - Nicotine dependence, unspecified, uncomplicated - Psoriasis, unspecified - Type 2 diabetes mellitus with diabetic polyneuropathy - Cellulitis of right lower limb - Enterococcus as the cause of diseases classified elsewhere - Nicotine dependence, unspecified, uncomplicated - Essential (primary) hypertension - Presence of coronary angioplasty implant and graft [email or web address]
--- NOTE | 2021-04-12 02:11 | NUR ---
pt ARRIVES TO [place] VIA STRETCHER WITH FLOAT TROY TALLEY. pt ABLE TO PIVOT TO HOSPITAL BED INDEPENDENTLY. WOUND ASSESSED BY TROY TALLEY, KETTLE TENDER. FOOT ULCER ON RIGHT FOOT PAD MEASURING 10 MM LENGTH, 7 MM WIDTH, 10 MM IN DEPTH WITH APPROXIMATELY 7 MM TUNNELING AT 12 O'CLOCK POSITION. WOUND PACKED WITH SALINE GAUZE AND FOAM DRESSING APPLIED. ASSESSMENT COMPLETE. pt WITH CHRONIC NEUROPATHY OF HANDS AND FEET. REDNESS ON RIGHT FOOT AND CORDERO. pt RATES PAIN 8/10 IN RIGHT LEG. PRN PAIN MEDICATION ADMINISTERED. IV SITE FLUSHED WNL, IVF INFUSING. PRN SLEEP MEDICATION ADMINISTERED. CALL LIGHT IN REACH.
--- NOTE | 2021-04-12 05:01 | NUR ---
pt RESTING IN BED ON RIGHT SIDE. BREATHING UNLABORED. LIGHTS OFF IN ROOM. CALL LIGHT WITHIN REACH.
--- NOTE | 2021-04-12 05:56 | NUR ---
pt AWAKE AFTER LAB DRAW. VSS. URINAL EMPTIED, 800 MLS YELLOW URINE AT BEDSIDE. pt RATES PAIN 7/10 IN RIGHT FOOT/LEG. PRN PAIN MEDICATION ADMINISTERED REQUESTED. IVF INFUSING WNL. COFFEE AND ICE WATER PROVIDED. BREAKFAST ORDER TAKEN. CALL LIGHT IN REACH.
--- NOTE | 2021-04-12 08:45 | NUR ---
Scheduled medications adminstered, assessment complete. IV ABX infusing WNL. Pt states pain increased after walking to/from bathroom, pain meds provided, see mar. Pt states otherwise feeling "much better already". Reviewed plan of care, pt agreeable.
--- NOTE | 2021-04-12 09:30 | NUR ---
IV ABX infusing, pt ambulates to BR SBA, no other needs. Call light in reach
--- NOTE | 2021-04-12 11:45 | NUR ---
Spoke with Bubba. He cont. to live in [place] and has lived alone for 20 years. Denies needs. He did have confusion taking his antibiotic and took added doses and finished before he should have. He declined to have Dr. Yu from Podiatry see him and I updated Dr. Calle and she spoke with him and he then agreed to have his foot assesse He plans on dc to home when cleared and will return to his [employer] in [place].
--- NOTE | 2021-04-12 12:00 | NUR ---
CBG checked, patient ambulates to chair with SBA, IVF infusing WNL. Call light in reach
--- NOTE | 2021-04-12 13:38 | NUR ---
PT WS SITTING IN CHAIR, WATCHING TV AND JUST GETTING READY TO EAT HIS LUNCH. PT SEEMED PREOCCUPIED WITH HIS MEAL, HE DID HOWEVER REQUEST A VISIT FROM . WILL INFORM, GAVE BLESSING AND WILL FOLLOW
--- NOTE | 2021-04-12 13:49 | NUR ---
PT RESTING IN CHAIR WITH CALL LIGHT IN REACH. NO FURTHER NEEDS AT THIS TIME
--- NOTE | 2021-04-12 13:57 | NUR ---
Scheduled medications administered, assessment complete. Pt up to chair SBA. He states his pain is 9/10, accepts PRN pain medication at this time after dressing change. IVF and ABX infusing. Fresh ice, warm blankets provided. Call light in reach
--- NOTE | 2021-04-12 19:31 | NUR ---
REPORT RECEIVED FROM DAY SHIFT RN. PT LYING IN BED ALERT AND ORIENTED. DENIES NEEDS AT THIS TIME. WHITE BOARD UPDATED. CALL LIGHT IN REACH.
--- NOTE | 2021-04-12 21:00 | NUR ---
EVENING ASSESMENT COMPLETE. SCHEDULED MEDS ADMINISTERED PER EMAR. IV ABX INFUSING WNL. PT REPORTS RIGHT FOOT PAIN 12/22. SCHEDULED PAIN MEDS ADMINISTERED. RLE ELEVATED ON PILLOWS. DRESSING CDI. FOOT CRADLE PLACED ON BED. FRESH WATER PROVIDED. URINAL EMPTIED OF CLEAR YELLOW URINE. PT DENIES NEEDS QUESTIONS OR CONCERNS. CALL LIGHT IN REACH.
--- NOTE | 2021-04-12 23:33 | NUR ---
CALL LIGHT ANSWERED. IV PUMP ALARMING. ISSUE RESOLVED. ASSISTED PT TO REPOSITION IN BED. RLE ELEVATED ON PILLOWS. PRN ADMINISTERED FOR 9/10 RIGHT FOOT PAIN. URINAL EMPTIED. PT DENIES FURTHER NEEDS. CALL LIGHT IN REACH.
--- NOTE | 2021-04-12 23:43 | EKG ---
[facility] [address] [place] [address] Signed Normal sinus rhythm Normal ECG When compared with ECG of 18-APR-2017 12:08, No significant change was found Confirmed by KAREN BELLA MD ([id number]) on 04/12/2021 11:42:49 PM Electronically Signed By: KAREN BELLA MD 04/12/21 2343 PATIENT NAME: CHELO GANNON Electrocardiogram DATE OF : 53 PHYSICIAN: KAREN BELLA MD REPORT #: [id number] REPORT IS CONFIDENTIAL AND NOT TO BE RELEASED WITHOUT AUTHORIZATION
--- NOTE | 2021-04-13 02:30 | NUR ---
IV ABX HUNG AND INFUSING WNL. PT REPORTS PAIN TOLERABLE AT THIS TIME. PRN ADMINISTERED FOR SLEEP PER PT REQUEST. URINAL EMPTIED OF 450 ML CLEAR YELLOW URINE. ASSISTED PT TO REPOSITION TO LEFT SIDE FOR COMFORT. RLE ELEVATED ON PILLOWS. FOOT CRADLE IN PLACE. NO FURTHER NEEDS. CALL LIGHT IN REACH.
--- NOTE | 2021-04-13 04:30 | NUR ---
IV PUMP ALARMING. NEW TUBING AND BAG OF FLUIDS HUNG. ISSUE RESOLVED. PT REPORTS HE IS RESTING WELL AND PAIN IS TOLERABLE AT THIS TIME. URINAL EMPTIED. NO FURTHER NEEDS. CALL LIGHT IN REACH.
--- NOTE | 2021-04-13 06:30 | NUR ---
VS AND I&O COMPLETE. PT REPORTS RIGHT FOOT PAIN 12/22. PRN FOR PAIN ADMINISTERED PER EMAR. ASSISTED TO REPOSITION FOR COMFORT. RLE ELEVATED ON PILLOWS. DRESSING TO RIGHT FOOT CDI. FOOT CRADLE IN PLACE. FRESH WATER AND COFFEE PROVIDED. PT DENIES FURTHER NEEDS. CALL LIGHT IN REACH.
--- NOTE | 2021-04-13 07:19 | NUR ---
Report received from Tiffany SIMMONS. Pt resting at this time with no needs. Call light in reach, will continue plan of care.
--- NOTE | 2021-04-13 07:26 | NUR ---
IV pump alarming, IV ABX complete. Pt resting in bed and states he "did get some sleep last night". States no further needs. Call light in reach
--- NOTE | 2021-04-13 07:45 | NUR ---
CBG checked, breakfast delivered, pt up to chair. IVF infusing WNL. Dressing to R foot C/D/I, remains elevated in recliner and on pillows.
--- NOTE | 2021-04-13 08:50 | NUR ---
Scheduled medications administered, assessment complete. IVF ABX infusing WNL. Pt reports tolerable level of pain at this time, elevated RLE.
--- NOTE | 2021-04-13 09:55 | NUR ---
Pt states he did not sleep well last night and would like to take a nap. Medicated for 9/10 pain with PRN norco. Pt is slightly irritable, states he will "feel better after a little rest", allowed to rest undisturbed at this time.
--- NOTE | 2021-04-13 10:05 | NUR ---
PT RESTING IN BED WITH A "NAP TIME" SIGN ON THE DOOR THAT STARTED AT 0955. TROY SCHAFFER ALLOWS VITALS TO BE DONE WHEN PT WAKES UP.
--- NOTE | 2021-04-13 11:45 | NUR ---
Patient awake in bed, watching tv. VSS, CBG checked and lunch provided. Pt states he had a "great nap" and is feeling "better," "this room is so cozy".
--- NOTE | 2021-04-13 13:57 | NUR ---
[place] 7.5/325mg po admin for reports of 8/10 right foot pain.
--- NOTE | 2021-04-13 13:58 | NUR ---
PT AWAKE IN BED. PT PROVIDED BED BATH ITEMS, CALL LIGHT WITHIN REACH. NO FURTHER NEEDS AT THIS TIME.
--- NOTE | 2021-04-13 14:18 | NUR ---
PT REQUESTED A VISIT FROM [facility] FOLLOWING MASS TODAY. INFORMED [facility], HE WILL VISIT. WILL FOLLOW NEEDED
--- NOTE | 2021-04-13 14:45 | NUR ---
Rounded on patient who denies needs at this time. On room air, IVF infusing WNL. A+O. Call light in reach.
--- NOTE | 2021-04-13 15:52 | NUR ---
No change in plan for dc.
--- NOTE | 2021-04-13 16:56 | NUR ---
Dressing to R Foot changed per wound order by . Pt tolerates dressing change well and states no pain with dressing or wound cleansing. Dinner provided, pt has no further needs.
--- NOTE | 2021-04-13 19:36 | NUR ---
REPORT RECEIVED FROM DAY SHIFT RN. PT LYING IN BED ON RIGHT SIDE RESTING WITH EYES CLOSED. RESPIRATIONS EVEN. WHITE BOARD UPDATED. CALL LIGHT IN REACH.
--- NOTE | 2021-04-13 20:10 | NUR ---
ASSISTED PRIMARY RN DEENA. V/S AND I&O'S DONE. EMPTIED URINAL.
--- NOTE | 2021-04-13 20:45 | NUR ---
EVENING ASSESSMENT COMPLETE. SCHEDULED MEDS ADMINISTERED PER EMAR. PT REPORTS RIGHT FOOT PAIN 9/10. SCHEDULED PAIN MEDS GIVEN. RIGHT FOOT DRESSING CDI. RLE ELEVATED ON PILLOWS. FOOT CRADLE IN PLACE. URINAL EMPTIED. FRESH WATER PROVIDED. IVF INFUSING WNL. PT DENIES QUESTIONS OR CONCERNS. CALL LIGHT IN REACH.
--- NOTE | 2021-04-13 22:15 | NUR ---
CALL LIGHT ANSWERED. PT REPORTS RIGHT FOOT PAIN 12/22. PRN FOR PAIN ADMINISTERED PER EMAR. URINAL EMPTIED OF 400 ML CLEAR YELLOW URINE. FRESH WATER AND SUGAR FREE SODA PROVIDED.
--- NOTE | 2021-04-13 23:33 | NUR ---
PT RESTING IN BED WITH EYES CLOSED. RESPIRATIONS EVEN. CALL LIGHT IN REACH.
--- NOTE | 2021-04-14 00:30 | NUR ---
IV PUMP ALARMING. IV ABX COMPLETE. PT SL PER ORDER. ASSISTED TO REPOSITION IN BED FOR COMFORT. PT REPORTS PAIN IS TOLERABLE AT THIS TIME.
--- NOTE | 2021-04-14 02:20 | NUR ---
IV ABX INFUSING WNL. PT RESTING ON LEFT SIDE. DENIES NEEDS AT THIS TIME. CALL LIGHT IN REACH.
--- NOTE | 2021-04-14 05:56 | NUR ---
VS AND I&O COMPLETE. PT REPORTS PAIN IS TOLERABLE AT THIS TIME. DENIES PRN FOR PAIN. DRESSING TO RIGHT FOOT CDI. RLE ELEVATED ON PILLOWS. FOOT CRADLE ON END OF BED. FRESH COFFEE AND WATER PROVIDED. PT DENIES FURTHER NEEDS. CALL LIGHT IN REACH.
--- NOTE | 2021-04-14 06:56 | NUR ---
NEW IV STARTED IN RIGHT FOREARM. pt TOLERATED WELL, IV FLUIDS INFUSING. CALL LIGHT WITHIN REACH.
--- NOTE | 2021-04-14 07:27 | NUR ---
REPORT RECEIVED FROM TROY SHAFFER. PT RESTING IN BED WATCHING TV. DRESSING TO RLE REMAINS C/D/I, NO DRAINAGE NOTED. PT REPORTS 8/10 THROBBING PAIN IN RLE AT THIS TIME. NO ADDITIONAL REQUESTS OR COMPLAINTS. CALL LIGHT WITHIN REACH. BED RAILS UP.
--- NOTE | 2021-04-14 08:27 | NUR ---
MORNING ASSESSMENT AND MEDICATION DUE. THIS RN TO ROOM. PT UP TO CHAIR FOR BREAKFAST. PT REPORTS HE GOT HIMSELF UP FOR BREAKFAST WITHOUT CALLING THE NURSING STAFF. FALL PRECAUTIONS REVIEWED WITH PT WHO VERBALIZES UNDERSTANDING. PT REPORTS 9/10 THROBBING PAIN IN RIGHT FOOT. SEE MAR FOR MEDICATION GIVEN. IV ASSESSED, WNL, NO S/S OF PHLEBITIS. IV ABX STARTED. LUNG SOUNDS CLEAR, HEART TONES REGULAR. +1 SWELLING REMAINS TO RIGHT LOWER EXTREMITY. FOOT PAINFUL TO TOUCH, PT GUARDING. PT CONFIRMS NUMBNESS/TINGLING IN HIS FEET AND "FINGER TIPS." PT REPORTS THIS HAS "BEEN THERE FOR A WHILE." DRESSING TO RLE REMAINS C/D/I, NO DRAINAGE NOTED. DRESSING LEFT IN PLACE AT THIS TIME. WILL ASSESS WOUND IN MORE DETAIL WITH DRESSING CHANGE. MEDICATIONS GIVEN. PT REMAINS UP TO CHAIR. NO ADDITIONAL REQUESTS OR COMPLAINTS AT THIS TIME. CALL LIGHT WITHIN REACH.
--- NOTE | 2021-04-14 10:11 | NUR ---
THIS RN TO ROOM TO CHECK ON PT. IV PUMP ALARMING, METRONIDAZOLE INFUSION COMPLETE. IV ASSESSED, WNL, NO S/S OF PHLEBITIS NOTED. CEFEPIME CONTINUES INFUSING. SBA UP TO STAND AND USE URINAL. SBA BACK TO BED. PT REPORTS HE WOULD LIKE TO "REST FOR A WHILE." PT REPORTS 7/10 PAIN IN HIS RIGHT FOOT. PT RESPORTS "I CAN TELL IT'S WORKING" REGARDING PAIN MEDICATION. NO ADDITIONAL REQUESTS OR COMPLAINTS. CALL LIGHT WITHIN REACH. BED RAILS UP.
--- NOTE | 2021-04-14 11:00 | NUR ---
THIS RN TO ROOM TO CHECK ON PT. PT RESTING IN BED. PT ENCOURAGED TO HAVE BLINDS OPEN AND SPEND TIME UP TO CHAIR. PT DECLEINS BOTH STATING HE WANTS TO STAY IN BED WITH A DARK ROOM. PT CONTINUES TO DECLINE DRESSING CHANGE AT THIS TIME STATING "MAYBE AFTER LUNCH." PT REQUESTS 7-UP, DIET 7-UP PROVIDED. PT REPORTS PAIN MEDICATION "HELPED A LOT." NOW RATES PAIN AT 6-7/10 IN RIGHT FOOT. NO ADDITIONAL REQUESTS OR COMPLAINTS. CALL LIGHT WITHIN REACH. BED RAILS UP.
--- NOTE | 2021-04-14 11:49 | NUR ---
PT CALL LIGHT ON. PT REPORTS HE IS READY FOR DRESSING CHANGE. STAND BY ASSIST UP TO VOID. PT VOIDS 250ML CLEAR YELLOW URINE WITH OUT ISSUE. STAND BY ASSIST WITH TOE TOUCH UP TO CHAIR. PT REPORTS 7/10 PAIN, "UP TO AN 8" PRIOR TO DRESSING CHANGE. OLD DRESSING REMOVED. YELLOW DRAINAGE NOTED ON ABD PAD. TWO WOUNDS NOTED: PAD OF FOOT: OBLONG ULCERATION NOTED MEASURING 1.3CM DEEP, 0.7CM WIDE, AND 1.1 CM LONG. WOUND BED REDDENED. WOUND EDGES CURRLED IN TOWARD WOUND BED. WOUND CLEANED WITH WOUND CLEANSER. IODOSORB PACKED INTO WOUND BED UP TO SURGACE. WOUND TO UNDER TOES AND PADS OF TOES: WOUND MEASURES 5.4 CM LONG AND 3.2 CM LONG WITH AREAS OF MACERATED WHITE SKIN AT RIGHT AND LEFT SIDES OF WOUND. RIGHT SIDE MACERATED SKIN MEASURES 1.6CM BY 1.4 CM. LEFT SIDED MACERATED SKIN MEASURES 1.0CM X 0.4 CMS. WOUND BED SHOWS AREA OF GRANULATION TISSUE AND ALSO AREAS OF SLOUGH. WOUNDED EDGES REMAIN MILDLY MACERATED. WOUNDS CLEANSED WITH WOUND CLEANSER. IODASORB APPLIED TO WOUND BED. FOAM DRESSING APPLIED OVER BOTH WOUNDS FOLLOWED BY KERLIX GAUZE AND COBAN. PT REPORTS "THAT FEELS GREAT, NOT TO TIGHT." PT REPORTS 9/10 PAIN AFTER DRESSING CHANGE STATING "THE AIR RILED IT UP." PHOTOGRAPHS TAKEN AND FILED IN PAPER CHART. CONSENT SIGNED. BLOOD SUGAR TAKEN, INSULIN GIVEN. PT UP TO CHAIR EATING BREAKFAST. FATHER/ALARM MECHANISM ADJUSTER TO BEDSIDE TO VISIT WITH PT. PT TALKING WITH ALARM MECHANISM ADJUSTER. NO ADDITIONAL REQUESTS OR COMPLAINTS. CALL LIGHT WITHIN REACH. BED RAILS UP.
--- NOTE | 2021-04-14 13:09 | NUR ---
PT CALLED- IV BEEPING- ANTIBIOTICS DONE. THIS RN SALINE LOCKED PT. PT NEEDS NOTHING FURTHER. CALL LIGHT WITHIN REACH
--- NOTE | 2021-04-14 13:55 | NUR ---
AFTERNOON ASSESSMENT DUE. PT UP TO CHAIR, WATCHING TV. PT REPORTS 6/10 PAIN IN RIGHT FOOT. PT REQUESTS PAIN MEDICATION. PT ALERT AND ORIENTED. PT PLANNING TO HAVE A SHOWER THIS AFTERNOON, MEDICATION GIVEN NOW IN ANTICIPATION OF ACTIVITY. PT DENIES NASUEA. IV ASSESSED, WNL, FLUSHES EASILY WITH NO S/S OF PHLEBITIS. IV ABX STARTED. ASSESSMENT DONE. LUNGS SOUNDS REAMIN CLEAR. HEART TONES REGULAR. +1 EDEMA CONTINUES TO RLE, PT REPORTS TOP OF HIS CORDERO IS SENSITIVE TO TOUCH. DRESSING REMAINS C/D/I, NO DRAINAGE NOTED. VITAL SIGNS STABLE. PT DENIES ADDITIONAL REQUESTS OR COMPLAINTS. CALL LIGHT WITHIN REACH.
--- NOTE | 2021-04-14 14:00 | NUR ---
Spoke with Bubba. He is feeling better and pain is better. Cont. 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
--- NOTE | 2021-04-14 14:17 | NUR ---
ARRANGED WITH [facility] TO VISIT PT TODAY. HE WILL FOLLOWING MASS TODAY
--- NOTE | 2021-04-14 15:32 | NUR ---
THIS RN TO ROOM TO CHECK ON PT. PT REPORTS HE WOULD LIKE A SHOWER, NOW, IV ABX INFUSION PAUSED. IV'S COVERED. RIGHT FOOT DRESSING COVERED. STAND BY ASSIST UP TO SHOWER. PT PERFORMS SELF CARE IN SHOWER. PT ASSISTED WITH DRESSING, SOCKS APPLIED. FRESH UNDERWARE, GOWN AND PANTS PROVIDED. STAND BY ASSIST BACK TO BED. PT REPORTS 6/10 PAIN IN RIGHT FOOT. NO ADDITIONAL REQUESTS OR COMPLAINTS. CALL LIGHT WITHIN REACH. BED RAILS UP.
--- NOTE | 2021-04-14 16:36 | NUR ---
THIS RN TO ROOM TO CHECK ON PT. PT RESTING IN BED WATCHING TV. PT RPEORTS 8/10 PAIN IN RIGHT FOOT, FOOT ELEVATED. PT UPDATED ON PAIN MEDICATION AND WHEN NEXT MEDICATION IS DUE. PT VERBALIZES UNDERSTANDING AND STATE "YEAH, THAT'S FINE, I CAN WAIT." PT DENIES ADDITIONAL REQUESTS OR COMPLAINTS. CALL LIGHT WITHIN REACH. BED RAILS UP.
--- NOTE | 2021-04-14 17:04 | NUR ---
DINNER ARRIVED, DELIVERED TO PT. INSULIN GIVEN. PT UP TO CHAIR FOR DINNER. PT DENIES ADDITIONAL REQUESTS OR COMPLAINTS. CALL LIGHT WITHIN REACH.
--- NOTE | 2021-04-14 17:10 | NUR ---
PT HRE FOR RIGHT FOOT DIABETIC FOOT WOUND. PT UP WITH STAND BY ASSIST TO CHAIR AND FOR SHOWER THIS SHIFT. PT TOLERATING 60G CARB DIET WITH GOOD APPITITE, BLOOD SUGAR CHECKS WITH MEALS AND SLIDING SCALE INSULIN GIVEN. BLOOD SUGARS REMAIN ELEVATED. DRESING CHANGED THIS SHIFT. YELLOW DRAINGE NOTED FROM WOUND BED WELL MACERATED SKIN (SEE COMPLEX WOUND ASSESSMENT). PT REPORTS 6-9/10 PAIN, SCHEDULED AND PRN PAIN MEDICATION GIVEN.+1 EDEMA TO RIGHT LOWER EXREMITY REMAINS UNCHANGED. IV ABX CHANGED WITH WOUND CULTURE RESULTS. SHOWER THIS SHIFT. PT VOIDING QUANTITY SUFFICIENT. PT USES CALL LIGHT AND MAKES NEEDS KNOWN.
--- NOTE | 2021-04-14 17:56 | NUR ---
165/67 BP. 91 MAP. RN will be notified. Call light is in reach of patient.
--- NOTE | 2021-04-14 18:02 | NUR ---
CALL FROM DR. GARCIA THAT HE WOULD BE IN EARLY IN THE MORNING TO REDRESS PATIENT'S FOOT, APPLY FELT TO OFFLOAD WEIGHT, AND BRING FINAL CULTURE RESULTS IF AVAILABLE. DR. BELLA NOTIFIED.
--- NOTE | 2021-04-14 18:14 | NUR ---
THIS RN TO ROOM TO CHECK ON PT. PT RESTING IN BED. PT REPORTS 8/10 THROBBING PAIN IN HIS RIGHT FOOT. SEE MAR FOR MEDICATION GIVEN. PT REPORTS HE SPOKE WITH HIS PHARAMCIST AT [facility], WHO STATES HIS "DIABETIC READER METER" ON HIS LEFT ARM EXPIRES TOMORROW AND SHOULD BE REMOVED. REMOVED BY THIS RN AND PLACED IN SHARPS CONTAINER. PT UPDATED ON PLAN OF CARE. PT VERBALIZES UNDERSTANDING. PT STATES HIS QUESTIONS HAVE BEEN ANSWERED. NO ADDITIOANL REQUESTS OR COMPLAINTS. CALL LIGHT WITHIN REACH.
--- NOTE | 2021-04-14 19:30 | NUR ---
SHIFT REPORT RECEIVED FROM YAKELIN MATHEW AT BEDSIDE. pt AWAKE AND RESTING IN BED, BOOSTED IN BED. IV ABX COMPLETE, SITE WNL AND SALINE LOCKED BY YAKELIN RN. DRESSING TO RIGHT FOOT INTACT, FAINT YELLOW SHADOWING TO TOP OF DRESSING NEAR TOES, WILL MONITOR. BED ALARM ON FOR SAFETY, CALL LIGHT IN REACH. NO NEEDS OR CONCERNS VERBALIZED BY pt.
--- NOTE | 2021-04-14 19:34 | NUR ---
PUMP ALARMING, INFUSION AND FLUSH COMPLETE. IV FLUSHED AND SALIEN LOCKED, ALCOHOL CAP APPLIED PER PROTOCOL. PT REPOSITIONED SELF IN BED. PT REPORTS 7/10 PAIN IN RIGHT FOOT. PT DENIES ADDITIONAL REQUESTS OR COMPLAINTS. REPORT GIVEN TO TROY MOHR. PT DENEIS ADDITIONAL REQUESTS OR COMPLAINTS. CALL LIGHT WITHIN REACH. BED RAILS UP. BED ALARM ON.
--- NOTE | 2021-04-14 21:00 | NUR ---
IN TO EMPTY URINAL, VITALS DONE, ICE PROVIDED FOR SODA, NO FURTHER NEEDS AT THIS TIME
--- NOTE | 2021-04-14 21:40 | NUR ---
ASSESSMENT COMPLETE, VSS. NEW IV PLACED TO LEFT FOREARM DUE TO PAIN WHEN FLUSHING INITIAL IV. CATHETER INTACT, IV ABX INFUSING DIRECTED. SCHEDULED MEDS GIVEN, SEE EMAR. DRESSING TO RIGHT FOOT INTACT, SCANT SHADOWING TO TOP OF DRESSING, BILATERAL PEDAL PULSES NOTED, STRONG IN NATURE. NO ADDITIONAL NEDS, CALL LIGHT IN REACH AND BED ALARM ON.
--- NOTE | 2021-04-14 22:50 | NUR ---
IV ABX COMPLETE, SITE WNL AND FLUSHES EASILY. BRISK BLOOD RETURN NOTED. NO ADDITIONAL NEEDS VERBALIZED AT THIS TIME. CALL LIGHT IN REACH.
--- NOTE | 2021-04-15 00:29 | NUR ---
pt RESTING IN BED WITH EYES CLOSED, RR EVEN AND UNLABORED. NO DISTRESS OR SIGNS OF PAIN NOTED. CALL LIGHT IN REACH WITH URINAL REMAINING AT BEDSIDE.
--- NOTE | 2021-04-15 02:00 | NUR ---
CALL LIGHT ANSWERED, PRN PAIN MEDICATION GIVEN (SEE EMAR). ASSESSMENT COMPLETE, NO ACUTE CHANGES. IV SITE WNL, REMAINS SALINE LOCKED. NO ADDITIONAL NEEDS, CALL LIGHT IN REACH.
--- NOTE | 2021-04-15 03:59 | NUR ---
pt RESTING IN BED WITH EYES CLOSED, RR EVEN AND UNLABORED. NO DISTRESS NOTED, CALL LIGHT REMAINS IN EASY REACH.
--- NOTE | 2021-04-15 05:19 | NUR ---
AM VSS, I&O'S COMPLETE. IV SITE REMAINS SALINE LOCKED, WNL. COFFEE PROVIDED PER pt REQUEST, NO ADDITIONAL NEEDS. CALL LIGHT IN REACH.
--- NOTE | 2021-04-15 07:23 | NUR ---
REPORT RECEIVED FROM TROY MOHR. PT RESTING IN BED WATCHING TV. PT REPORTS 7/10 PAIN IN RIGHT FOOT, MORNING MEDICAITONS TO BE GIVEN SOON. PT REQUESTS ADDITIONAL COFFEE, PROVIDED. PT DENIES NAUSEA. NO ADDITIONAL REQUESTS OR COMPALINTS. CALL LIGHT WIHTIN REACH. BED RAILS UP.
--- NOTE | 2021-04-15 07:35 | NUR ---
MORNING ASSESSMENT AND MEDICATION DUE. PT RESTINGING IN BED. PT CONTINUES TO REPORT 7/10 THROBBING AND BURNING PAIN IN RIGHT FOOT. SEE MAR FOR MEDICATIN GIVEN. PT ALERT AND ORIENTED. PT RESPONDING APPROPRIATLY TO QUESTIONS AND CONVERSATION. PT DENIES NASUEA. IV ASSESSED, WNL, NO BLOOD RETURN NOTED, FLUSHES EASILY. NO S/S OF PHLEBITIS. IV ABX STARTED. PT UP TO CHAIR WITH STAND BY ASSIST. PT UNSTEADY ON FEET RIGHT FOOT IS WRAPED. LUNG SOUNDS CLEAR. HEART TONES REGULAR. +1 SWELLING TO RIGHT LOWER EXTREMITIY CONTINUES, UNCHANGED. DR. GARCIA TO BEDSIDE TO CHANGE DRESSING. OLDDRESSING REMOVED. YELLOW DRAINAGE NOTED. WOUND CLEANED AND MACERATED SKIN AND SLOUGH TISSUE REMOVED BY DR. GARCIA. WOUND CLEANED WITH NORMAL SALINE. IODASORB APPLIED TO BOTH WOUNDS FOLLOWED BY ALLEVYN FOAM DRESSING AND FOAM PAD. KERLIX GAUZE AND COBAN APPLIED (ALL BY DR. GARCIA WITH THIS RN ASSISTING). PHOTOGRAPHS TAKE. PT UPDATED ON PLAN OF CARE AND NEED TO CONTINUE IV ABX GIVEN YELLOW DRAINAGE. PT TOLERATED DRESSING CHANGE WELL. AFTER DRESSING CHANGE PT REPORTS 9/10 PAIN (MORPHINE RECENTLY GIVEN). PT EATING BREAKFAST, MEDICATIONS GIVEN. NO ADDITIONAL REQUESTS OR COMPLAINTS. CALL LIGHT WITHIN REACH.
--- NOTE | 2021-04-15 08:57 | NUR ---
PUMP ALARMING, INFUSION AND FLUSH COMPLETE. IV ASSESSED, WNL. NO S/S OF PHLEBITIS NOTED. PT INSISTS ON GETTING BACK TO BED. EDUCAITON DONE WITH PT PT STATES "YOU'RE NOT THE BOSS OF ME, I DON'T CARE WHAT YOU SAY." 1 PERSON ASSIST BACK TO BED. NEXT ABX STARTED (SEE MAR). PT DENIES ADDITIONAL REQUESTS OR COMPLAINTS. CALL LIGHT WITHIN REACH. BED RAILS UP.
--- NOTE | 2021-04-15 09:30 | NUR ---
PT REPORTS PAIN AT IV SITE. SITE ASSESSED AND NO REDNESS, SWELLING, FIRMNESS OR HEAT PRESENT. IV SITE FLUSHED WITH 20ML NS WITH NO PROBLEMS. PT REPORTS PAIN HAS SUBSIDED. WILL CONT TO MONITOR.
--- NOTE | 2021-04-15 09:47 | NUR ---
BP 173/75. MAP 94. Pulse 94. RN will be notified. Patient is in bed. Case management is in room.
--- NOTE | 2021-04-15 09:56 | NUR ---
BP was retaken on right arm and it was 166/82. MAP 103. 88 Pulse. RN will be notified.
--- NOTE | 2021-04-15 10:00 | NUR ---
THIS RN TO ROOM TO CHECK ON PT. PUMP ALARMING, INFUSION AND FLUSH COMPLETE. IV ASSESSED, WNL. NO S/S OF PHLEBITIS NOTED. PT DENIES PAIN WITH FLUSH. IV SALINE LOCKED, ALCOHOL CAP APPLIED. PT REPORTS 7/10 PAIN IN RIGHT FOOT "IT'S NOT THROBBING BUT ITS THERE." SEE MAR FOR MEDICATION. NO ADDITIONAL REQUESTS OR COPMLAINTS. CALL LIGHT WITHIN REACH. BED RAILS UP.
--- NOTE | 2021-04-15 10:50 | NUR ---
Spoke with Michael. He denies needs. States Dr. Yu wanted him to stay another day due to drainage in his foot. Pt states concern as he is a SS phone appt to renew his SS and his trac phone is out of minutes. He would like assistance to pay with his credit card. RUBY Willoughby, attempted to assist pt, but computerized program would not accept all inform. Call was transfered to hold for a pharmaceutical service representative. I then held on the line until a rep was able to complete order. Pt requested $130 of min. and I read his credit card to the rep, pt was able to state address. Rep attempted to have pt increase plan by asking if he was interested in texting and pt stated he was only interested in, "getting the hell off this phone call". Pt will have minutes through July 14 and was pleased with this he denies other needs.
--- NOTE | 2021-04-15 11:35 | NUR ---
THIS RN TO ROOM TO CHECK ON PT. PT VISITING WITH STAFF. PT RPEORTS 7/10 PAIN IN RIGHT FOOT. PT REPORTS PAIN IS 9/10 "WHEN TALKING TO YOU PEOPLE." 10-20MINUES OF CONVERSATION HELD WITH PT WHERE PT TELLS STORIES AND HISTORY OF WOUND CARE. PT EXPRESSES THAT HE WOULD LIKE TO CONTINUE FOLLOWING UP WITH [facility] AND HAVING WOUND CARE AT [facility]. PT CLAMS AND REPORTS PAIN IS "BETTER NOW." DR. BELLA TO BEDSIDE FOR ROUNDS. PT VERBALIZES UNDERSTANDING OF PLAN OF CARE AND TREATMENT. PT STATES HIS QUESTIONS HAVE BEEN ANSWERED AND HIS CONCERNS ADDRESSED. PT DENIES ADDITIONAL REQUESTS OR COMPLAINTS. CALL LIGHT WITHIN REACH. BED RAILS UP.
--- NOTE | 2021-04-15 12:00 | NUR ---
LUNCH ARRIVED, DELIVERED TO PT. INSULIN GIVEN. ICE PROVIDED FOR SODA AND ICE WATER REFILLED. PT UP TO CHAIR FOR LUNCH, STAND BY ASSIST. PT DENIES ADDITIONAL REQUESTS OR COMPLAINTS. CALL LIGHT WITHIN REACH.
--- NOTE | 2021-04-15 12:58 | NUR ---
THIS RN TO ROOM TO CHECK ON PT. PT REMAINS UP TO CHAIR. PT REPORTS "I'M ENJOYING THE PEACE AND QUIET." PT DENES ADDITIONAL REQUESTS OR COMPLAINTS. CALL LIGHT WITHIN REACH.
--- NOTE | 2021-04-15 14:21 | NUR ---
HEALTH UNIT SUPERVISOR JONES REQUESTED I NOT DISTURB PT AT THIS TIME. HE NEEDED SOME QUIET TIME. WILL FOLLOW NEEDED
--- NOTE | 2021-04-15 14:28 | NUR ---
AFTERNOON ASSESSMENT DUE. PT RESTING IN BED WATCHING TV. PT REPORST 12/22 "BURNING" PAIN IN RIGHT FOOT. SEE MAR FOR MEDICATION GIVEN. PT REPORTS PAIN AT LEFT HAND IV SITE. PT REPORTS PAIN IS WORSE WITH FLUSHING. IV DC'D PER PROTOCOL. NEW IV STARTED IN RIGHT FORARM PER PROTOCOL, BRISK BLOOD RETURN NOTED. IV SALINE LOCKED, ALCOHOL CAP APPLIED. PT REMAINS ALERT AND ORIENTED. PT HOLDING CONVERSATION APPROPRIATLY. GATE REMAINS UNSTEADY RELATED TO RIGHT FOOT PAIN AND BANDAGE. LUNG SOUNDS CLEAR, HEART TONES REGULAR. +1 SWELLING UNCHANGED TO RIGHT LOWER EXTREMITY. PT DENIES NUMBNESS IN FINGER TIPS AT THIS TIME BUT CONTINUES TO ENSORSE NUMBNESS AND TINGLING TO BLE. NOTED THAT PTS LAST BOWEL MOVEMENT IS RECORDED AT 04/11. PT DENIES CONSTIPATION AND REFUSES BOWEL REGMINE MEDICATION. BOWEL TONES HYPOACTIVE. ABDOMEN SOFT. PT DENIES ADDITIONAL REQUESTS OR COMPLAINTS. PT ALLOWED TO REST. CALL LIGHT WITHIN REACH. BED RAILS UP.
--- NOTE | 2021-04-15 15:15 | NUR ---
THIS RN TO ROOM TO CHECK ON PT. PT REPORTS PAIN HAS IMPROVED, RATES PAIN AT 7/10. PT REPORTS "I'M JUST RELAXING." DENEIS ADDITIONAL REQUESTS OR COMPLAINTS. CALL LIGHT WITHIN REACH, BED RAILS UP.
--- NOTE | 2021-04-15 15:25 | NUR ---
PT HERE FOR RIGHT DIABETIC FOOT WOUND. PT UP WITH STAND BY ASSIST THIS SHIFT AROUND ROOM AND TO CHAIR. PT DECLINES SHOWER THIS SHIFT. PT TOELRATING 60G CARB DIET WITH GOOD INTAKE. BLOOD SUGAR CHECKS WITH MEALS AND SLIDING SCALE INSULIN GIVEN, RESULTS REMAIN ELEVATED. DRESSING TO RIGHT FOOT CHANGED THIS SHIFT BY DR. GARCIA, PHOTOS TAKEN. YELLOW DRAINAGE CONTINUES FROM WOUND. IV ABX CONTINUE. NEROPATHY PER BASELINE IN FEET. PRN AND SCHEDULED PAIN MEDICAITON GIVEN FOR 7-9/10 "BURNING" PAIN IN RIGHT FOOT. LUNG SOUNDS CLEAR. HEART TONES REGULAR. PT ALERT AND ORIENTED. PT VOIDING QUANTITY SUFFICIENT. PT USES CALL LIGHT AND MAKES NEEDS KNOWN.
--- NOTE | 2021-04-15 16:00 | NUR ---
PT CALL LIGHT ON. PT REQUESTS ASSISTANCE UP TO STAND AND USE URINAL. PT UP TO STAND, UNSTEADY ON FEET. PT INSISTS ON PRIVACY WHILE USING THE URINAL. PT CALLS WHEN FINISHED. PT SITTING BACK IN BED. 300ML CLEAR YELLOW URINE NOTED IN URINAL. PT RPEORTS 6/10 PAIN IN RIGHT FOOT. PT DENIES ADDITIONAL REQUESTS OR COMPLAINTS. CALL LIGHT WIHTIN REACH. BED RAILS UP.
--- NOTE | 2021-04-15 16:55 | NUR ---
DINNER ARRIVED. STAND BY ASSIST UP TO CHAIR. BLODO SGUAR TAKEN AND SLIDING SCALE INSULIN GIVEN. PT REPORTS 6/10 PAIN IN RIGHT FOOT. PT DENIES ADDITIONAL REQUESTS OR COMPLAINTS. CALL LIGHT WITHIN REACH.
--- NOTE | 2021-04-15 17:48 | NUR ---
Pt complete with dinner, stand by assist to bed. Pt denies additional request at this time. Call light put within reach.
--- NOTE | 2021-04-15 18:19 | NUR ---
THIS RN TO ROOM TO CHECK ON PT. PT RESTINGIN BED IN SEMI RECUBANT POSITION. PT REPORTS 10/22 PAIN RIGHT FOOT STATING "IT'S ALLRIGHT." PT DENIES ADDITIONAL REQUESTS OR COMPLAINTS STATING "I JUST WANT TO REST FOR A WHILE. PT ALLOWED TO REST. CALL LIGHT WITHIN REACH. BED RAILS UP.
--- NOTE | 2021-04-15 19:31 | NUR ---
PT RESTING IN BED. NO NEEDS AT THIS TIME. CALL LIGHT I NREACH. SHIFT REPORT RECEIVED FROM QUINCY SIMMONS.
--- NOTE | 2021-04-15 19:43 | NUR ---
IN TO ASSIST PT UP TO THE BATHROOM, VOIDING WITH URINAL, BACK TO BED AT THIS TIME, NO FURTHER NEED
--- NOTE | 2021-04-15 21:00 | NUR ---
IN TO ASSIST PT TO THE BATHROOM TO USE THE URINAL, BACK TO BED, VITALS DONE, TEMP ELEVATED, HAD PT USE THE I.S. TEMP LOWER, 99.0, RN INFORMED, NO FURTHER INSTUCTIONS, ICE FOR SODA AND ICE WATER FILLED, NO FURTHER NEEDS AT THIS TIME
--- NOTE | 2021-04-15 21:18 | NUR ---
SCHEDULED ACCUCHECK COMPLETE, RESULT IN EMAR AND REPORTED TO PRIMARY RN VIVEK. pt AWAKE AND INTERACTIVE WITH FAMILY PRACTITIONER, NO DISTRESS NOTED. BED ALARM ON FOR SAFETY. VSS, NO FURTHER NEEDS VERBALIZED. CALL LIGHT IN REACH.
--- NOTE | 2021-04-15 21:57 | NUR ---
ASSESSMENT COMPLETED. GCS 15, A&O X4. IV WNL, CDI, FLUSHED WELL. LUNGS CLEAR, HEART TONES REGULAR. ABD SOFT, NONTENDER, BOWEL TONES ACTIVE. NUMBNESS AND TINGLING IN HANDS AND FEET, CHRONIC. PULSES INTACT. RIGHT FOOT DRESSING CDI. PT REPORTS 8/10 RIGHT FOOT PAIN, SCHEDULED MEDS PROVIDED. NO OTHER NEEDS AT THIS TIME. CALL LIGHT IN REACH.
--- NOTE | 2021-04-16 | NUR ---
IV PUMP ALARMING, RESOLVED. PT UP TO BR AND BACK TO BED. NO OTHER NEEDS. CALL LIGHT IN REACH.
--- NOTE | 2021-04-16 02:00 | NUR ---
PT RESTING IN BED. CALL LIGHT IN REACH.
--- NOTE | 2021-04-16 04:00 | NUR ---
PT RESTING IN BED, EYES CLOSED. RR EVEN, UNLABORED. CALL LIGHT IN REACH.
--- NOTE | 2021-04-16 05:00 | NUR ---
PT CALLED, UP TO THE BATHEROOM FOR THE URINAL, BACK TO BED, VITALS DONE, COFFEE, ICE FOR SODA, ICE WATER PROVIDED, NO FURTHER NEEDS
--- NOTE | 2021-04-16 06:30 | NUR ---
Pt sitting up in chair w/ call light in reach. in room to perform daily dressing change and wound care. Pt tolerated well w/ moderate pain, scheduled pain meds given. Morning assement complete, scheduled meds given, and IV abx hung and infusing per provider's orders. Pt denies any further needs at this time, is eager to be discharged home today.
--- NOTE | 2021-04-16 07:30 | NUR ---
Shift report received from TROY Barrett, pt sitting up in chair safely w/ call light in reach, pt denies any needs at this time
[2021-04-16] MEDS ORDERED: DOXYCYCLINE HY100 MG PO (10:25)
[2021-04-16] MEDS ORDERED: METRONIDAZOLE500 MG PO (10:25)
--- NOTE | 2021-04-16 10:30 | NUR ---
Pt sitting up in chair safely w/ call light in reach, 2nd bag of IV abx hung and infusing per provider's order. Dr. Calle in room discussing plan of care w/ pt and pland for discharge. Pt denies any further needs at this time, understanding and agreeable w/ plan. Pt will discharge after abx infusion is complete.
--- NOTE | 2021-04-16 11:46 | NUR ---
TROY CARROLL REQUESTED I NOT DISTURB PT AT THIS TIME. WILL FOLLOW NEEDED
--- NOTE | 2021-04-16 12:30 | NUR ---
Spoke with pt and we discussed dressing changes. Dr. Gamino has now ordered daily dressing changes. Pt will come to daily through the weekend until he can be see by his Dr. Called at spoke with Elba Bragg at [facility]. She will move pt's podiatry appt up to the 8th from the . Pt will see Dr. Mills podiatry and his pcp Dr. Persaud on the . Podiatry at [address] Persaud at 1600. Pt then asked how he can get her as he does not have transportation. He states in the past he recieved care rides from the hospital. Called and confirmed with [employer] this is acceptable. Called and scheduled the taxi for daily rides at 9 am pickup for dressing change at through Monday. Pt will see podiatry on Mon. Pt denies further needs.
--- NOTE | 2021-04-16 12:45 | NUR ---
ANALIA Allen assisted pt w/ dressing, IV removed, and VSS on RA. No redness or swelling noted at the insertion site, gauze and coban applied, pt educated on post IV site care. Discharge instructions given in written form and verbally, pt agreeable w/ plan for outpatient wound care, all questions and concerns answered. Pt taken to front lobby via w/c, taxi there to transport pt home.
== END 2021-04-16 13:05 | disposition home or self-care (01) | DRG 638 ==
LOC: ED 23:09 → MS 04-12 00:51
PROVIDERS: ADMIT Internal Medicine; ATTEND Internal Medicine
PROC: 0HBMXZZ Excision of Right Foot Skin, External Approach (ICD-10-PCS; principal; 2021-04-14)
PROC: 0HBMXZZ Excision of Right Foot Skin, External Approach (ICD-10-PCS; 2021-04-15)
DX: E11.628 Type 2 diabetes mellitus with other skin complications (principal); L03.115 Cellulitis of right lower limb; Z20.822 Contact with and (suspected) exposure to COVID-19; N17.9 Acute kidney failure, unspecified; E11.621 Type 2 diabetes mellitus with foot ulcer; B95.8 Unspecified staphylococcus as the cause of diseases classified elsewhere; L97.519 Non-pressure chronic ulcer of other part of right foot with unspecified severity; Z68.32 Body mass index [BMI] 32.0-32.9, adult; I25.10 Atherosclerotic heart disease of native coronary artery without angina pectoris; E78.5 Hyperlipidemia, unspecified; E11.42 Type 2 diabetes mellitus with diabetic polyneuropathy; E66.9 Obesity, unspecified; F17.210 Nicotine dependence, cigarettes, uncomplicated; Z98.890 Other specified postprocedural states; Z95.5 Presence of coronary angioplasty implant and graft; Z79.899 Other long term (current) drug therapy; Z89.411 Acquired absence of right great toe; Z79.82 Long term (current) use of aspirin; Z79.4 Long term (current) use of insulin
CPT/HCPCS: 71045; 73630; 80048; 80053; 81001; 83605; 84484; 85025; 85651; 86140; 87040; 93005; 93010; 96365; 96375; 99285-25; A9270; C9803; J0692; J1170; J1815; J2405; J7030; U0003

== ENCOUNTER 2021-08-06 15:06 | Emergency (ER) | payer OTHER, MEDICARE ==
[~2021-08-06] VITALS: Ht 177.8 cm; Wt 100.2 kg
[~2021-08-06 15:06] MED LIST changes: +DOXYCYCLINE HY100 MG PO; +METRONIDAZOLE500 MG PO
--- OUTSIDE RECORDS SUMMARY | 2021-08-06 15:08 | XMS ---
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 PHONE: [phone] [facility] 03/05/2019-[facility] PHONE: [phone] Elsa has no Care Guidelines for this patient. Care History Medical/Surgical 04/12/2021 [facility] PATIENT- [facility] [employer] ELIGIBLE PLEASE REFER PATIENT TO [facility] FOR NON EMERGENT MEDICAL NEEDS. [facility] CAN SEE PATIENTS SAME DAY FOR APTS IF PATIENT CALLS FIRST THING IN THE MORNING. E.D. VISIT COUNT ([address] [facility] [address] [facility] TOTAL 4 NOTE: Visits indicate total known visits. ED/UCC VISIT TRACKING (12 MO.) 08/06/2021 15:07 [facility] [place] TYPE: Emergency COMPLAINT: - [facility] DIAGNOSES: - Type 2 diabetes mellitus with other skin complications - rt foot pain - Foot Pain - [facility] (current) use of insulin - Local infection of the skin and subcutaneous tissue, unspecified - Type 2 diabetes mellitus without complications 04/11/2021 23:09 [facility] [place] TYPE: Emergency COMPLAINT: - CHEST PAIN 03/15/2021 11:32 [facility] [place] TYPE: Emergency COMPLAINT: - WOUND CARE INPATIENT VISIT TRACKING (12 MO.) 04/20/2021 12:13 [facility] Carina [place] TYPE: Surgical Services DIAGNOSES: - Type 2 diabetes mellitus without complications - [facility] (current) use of insulin - Psoriasis, unspecified - Local infection of the skin and subcutaneous tissue, unspecified - Type 2 diabetes mellitus with other skin complications 04/12/2021 00:51 [facility] [place] TYPE: Medical Surgical COMPLAINT: - DIABETIC FOOT WOUND W/CELLULITIS DIAGNOSES: - Type 2 diabetes mellitus with diabetic polyneuropathy - Other specified postprocedural states - Acute kidney failure, unspecified - 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 - Nicotine dependence, cigarettes, uncomplicated - Type 2 diabetes mellitus with foot ulcer - Atherosclerotic heart disease of [place] coronary artery without angina pectoris - Presence of coronary angioplasty implant and graft - [facility] (current) use of insulin - Non-pressure chronic ulcer of other part of right foot with unspecified severity - Unspecified staphylococcus as the cause of diseases classified elsewhere - Type 2 diabetes mellitus with diabetic polyneuropathy - Acquired absence of right great toe - Other penitentiary (current) drug therapy - Type 2 diabetes mellitus with foot ulcer - long term care administrator (current) use of insulin - Acute kidney failure, unspecified - Non-pressure chronic ulcer of other part of right foot with unspecified severity - Obesity, unspecified - Nicotine dependence, cigarettes, uncomplicated - Unspecified staphylococcus as the cause of diseases classified elsewhere - [facility] (current) use of aspirin - Cellulitis of right lower limb - Hyperlipidemia, unspecified - Other specified postprocedural states - Acquired absence of right great toe - Cellulitis of right lower limb - Body mass index [BMI] 32.0-32.9, adult - Body mass index [BMI] 32.0-32.9, adult - Hyperlipidemia, unspecified - Type 2 diabetes mellitus with other skin complications - Atherosclerotic heart disease of [place] coronary artery without angina pectoris - Obesity, unspecified - [facility] (current) use of aspirin - Presence of coronary angioplasty implant and graft 03/15/2021 15:[address] [facility] [address] [facility] [place] TYPE: Medical Surgical COMPLAINT: - DIABETIC [...] right toe(s) - Atherosclerotic heart disease of [place] coronary artery without angina pectoris - Atherosclerotic heart disease of [place] coronary artery without angina pectoris - Type 2 diabetes mellitus with diabetic polyneuropathy - [facility] (current) use of insulin - Psoriasis, unspecified - Acquired absence of right great toe - Gangrene, not elsewhere classified - long term care administrator (current) use of insulin - Presence of [...] Presence of coronary angioplasty implant and graft [email or web address]
[2021-08-06] MEDS ORDERED: HYDROCODON-ACE1 EA10 PO (16:49)
== END 2021-08-06 17:03 | disposition home or self-care (01) ==
LOC: ED 15:06
DX: S39.011A Strain of muscle, fascia and tendon of abdomen, initial encounter (principal); I25.10 Atherosclerotic heart disease of native coronary artery without angina pectoris; E78.5 Hyperlipidemia, unspecified; E66.9 Obesity, unspecified; E11.40 Type 2 diabetes mellitus with diabetic neuropathy, unspecified; F17.200 Nicotine dependence, unspecified, uncomplicated; Z79.899 Other long term (current) drug therapy; Z79.84 Long term (current) use of oral hypoglycemic drugs; Z79.82 Long term (current) use of aspirin; W18.30XA Fall on same level, unspecified, initial encounter
CPT/HCPCS: 73700; 99283-25

== ENCOUNTER 2021-12-14 15:26 | Inpatient (IN) | payer MEDICARE, OTHER ==
[~2021-12-14] VITALS: Ht 177.8 cm; Wt 100.0 kg
[~2021-12-14 15:26] MED LIST changes: +HYDROCODON-ACE1 EA10 PO
--- OUTSIDE RECORDS SUMMARY | 2021-12-14 15:28 | XMS ---
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 Care History Medical/Surgical 04/12/2021 [facility] PATIENT- [facility] ELIGIBLE PLEASE REFER PATIENT TO [facility] FOR NON EMERGENT MEDICAL NEEDS. [facility] CAN SEE PATIENTS SAME DAY FOR APTS IF PATIENT CALLS FIRST THING IN THE MORNING. E.D. VISIT COUNT (12 MO.) 1 [facility] 4 [facility] TOTAL 5 NOTE: Visits indicate total known visits. ED/UCC VISIT TRACKING (12 MO.) 12/14/2021 15:26 [facility] [place] TYPE: Emergency COMPLAINT: - WEAKNESS 08/06/2021 15:07 [facility] [place] TYPE: Emergency COMPLAINT: - GROIN PAIN DIAGNOSES: - [facility] (current) use of oral hypoglycemic drugs - Hyperlipidemia, unspecified - Obesity, unspecified - Other penitentiary (current) drug therapy - Type 2 diabetes mellitus with diabetic neuropathy, unspecified - Nicotine dependence, unspecified, uncomplicated - Atherosclerotic heart disease of [place] coronary artery without angina pectoris - intermediate designer (current) use of aspirin - Lower abdominal pain, unspecified - Strain of muscle, fascia and tendon of abdomen, initial encounter - Fall on same level, unspecified, initial encounter 04/20/2021 12:13 [facility]MA[facility]A TYPE: Emergency DIAGNOSES: - Type 2 diabetes mellitus with other skin complications - rt foot pain - Foot Pain - [facility] (current) use of insulin - Local infection of the skin and subcutaneous tissue, unspecified - Type 2 diabetes mellitus without complications 04/11/2021 23:09 [facility] [place] TYPE: Emergency COMPLAINT: - CHEST PAIN 03/15/2021 11:32 [facility] [place] TYPE: Emergency COMPLAINT: - WOUND CARE INPATIENT VISIT TRACKING (12 MO.) [facility] DIAGNOSES: - Type 2 diabetes mellitus without complications - [facility] (current) use of insulin - Psoriasis, unspecified - Local infection of the skin and subcutaneous tissue, unspecified - Type 2 diabetes mellitus with other skin complications 04/12/2021 00:51 [facility] [place] TYPE: Medical Surgical COMPLAINT: - DIABETIC FOOT WOUND W/CELLULITIS DIAGNOSES: - Type 2 diabetes mellitus with diabetic polyneuropathy - Other specified postprocedural states - Acute kidney failure, unspecified - Other penitentiary (current) drug therapy - Nicotine dependence, cigarettes, uncomplicated - Type 2 diabetes mellitus with foot ulcer - Atherosclerotic heart disease of [place] coronary artery without angina pectoris - Presence of coronary angioplasty implant and graft - [facility] (current) use of insulin - Non-pressure chronic ulcer of other part of right foot with unspecified severity - Unspecified staphylococcus as the cause of diseases classified elsewhere - Type 2 diabetes mellitus with diabetic polyneuropathy - Acquired absence of right great toe - 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 - Type 2 diabetes mellitus with foot ulcer - [facility] (current) use of insulin - Acute kidney failure, unspecified - Non-pressure chronic ulcer of other part of right foot with unspecified severity - Obesity, unspecified - Nicotine dependence, cigarettes, uncomplicated - Unspecified staphylococcus as the cause of diseases classified elsewhere - intermediate designer (current) use of aspirin - Cellulitis of right lower limb - Hyperlipidemia, unspecified - Other specified postprocedural states - Acquired absence of right great toe - Cellulitis of right lower limb - Body mass index [BMI] 32.0-32.9, adult - Body mass index [BMI] 32.0-32.9, adult - Hyperlipidemia, unspecified - Type 2 diabetes mellitus with other skin complications - Atherosclerotic heart disease of [place] coronary artery without angina pectoris - Obesity, unspecified - intermediate designer (current) use of aspirin - Contact with and (suspected) exposure to COVID-19 - Presence of coronary angioplasty implant and [...] right toe(s) - Atherosclerotic heart disease of [place] coronary artery without angina pectoris - Atherosclerotic heart disease of [place] coronary artery without angina pectoris - Type 2 diabetes mellitus with diabetic polyneuropathy - [facility] (current) use of insulin - Psoriasis, unspecified - Acquired absence of right great toe - Gangrene, not elsewhere classified - intermediate designer (current) use of insulin - Presence of [...] Presence of coronary angioplasty implant and graft [email or web address]
[2021-12-15] MEDS ORDERED: LISINOPRIL20 MG PO (08:43)
[2021-12-15] MEDS ORDERED: CERAVE MOISTUR453 GM TOP (08:51)
[2021-12-15] MEDS ORDERED: TALTZ AUTO80 MG/1 ML SUB-Q (08:57)
--- NOTE | 2021-12-15 20:40 | EKG ---
[facility] [address] [place] [address] Signed Sinus tachycardia Otherwise normal ECG When compared with ECG of 11-APR-2021 23:17, No significant change was found Confirmed by JARON DAVIS MD ([id number]) on 12/15/2021 8:40:02 PM Electronically Signed By: JARON DAVIS MD 12/15/212039 PATIENT NAME: CHELO GANNON Electrocardiogram DATE OF : 53 PHYSICIAN: JARON DAVIS MD REPORT #: [id number] REPORT IS CONFIDENTIAL AND NOT TO BE RELEASED WITHOUT AUTHORIZATION
[2021-12-16] MEDS ORDERED: AMOX TR-K CLV1 EACH PO (12:16)
[2021-12-16] MEDS ORDERED: DOXYCYCLINE HY100 MG PO (12:17)
[2021-12-16] MEDS ORDERED: CARVEDILOL6.25 MG PO (12:18)
== END 2021-12-16 14:12 | disposition home or self-care (01) | DRG 872 ==
LOC: ED 15:26 → CCU 19:44 → MS 12-15 17:40
PROVIDERS: ADMIT Internal Medicine; ATTEND Internal Medicine
DX: A41.9 Sepsis, unspecified organism (principal); L03.115 Cellulitis of right lower limb; N17.9 Acute kidney failure, unspecified; E87.1 Hypo-osmolality and hyponatremia; F11.20 Opioid dependence, uncomplicated; R65.20 Severe sepsis without septic shock; E86.1 Hypovolemia; I25.10 Atherosclerotic heart disease of native coronary artery without angina pectoris; I10 Essential (primary) hypertension; Z20.822 Contact with and (suspected) exposure to COVID-19; N40.0 Benign prostatic hyperplasia without lower urinary tract symptoms; K21.9 Gastro-esophageal reflux disease without esophagitis; E66.9 Obesity, unspecified; F17.210 Nicotine dependence, cigarettes, uncomplicated; E78.00 Pure hypercholesterolemia, unspecified; R26.89 Other abnormalities of gait and mobility; E11.621 Type 2 diabetes mellitus with foot ulcer; L97.519 Non-pressure chronic ulcer of other part of right foot with unspecified severity; F51.04 Psychophysiologic insomnia; E11.40 Type 2 diabetes mellitus with diabetic neuropathy, unspecified; G89.4 Chronic pain syndrome; Z95.5 Presence of coronary angioplasty implant and graft; I25.2 Old myocardial infarction; Z98.890 Other specified postprocedural states; Z89.411 Acquired absence of right great toe; Z89.421 Acquired absence of other right toe(s); Z79.899 Other long term (current) drug therapy; Z79.811 Long term (current) use of aromatase inhibitors; Z79.2 Long term (current) use of antibiotics; Z79.02 Long term (current) use of antithrombotics/antiplatelets; Z79.4 Long term (current) use of insulin; Z79.82 Long term (current) use of aspirin; Z68.31 Body mass index [BMI] 31.0-31.9, adult
CPT/HCPCS: 36415; 51701; 71045; 73630; 80048; 80053; 80202; 81001; 83036; 83605; 85025; 87040; 87502; 93005; 93010; 93971; 99285-25; A9270; J0692; J1650; J1815; J3370; J7030; J7060; U0003

== ENCOUNTER 2022-04-26 13:37 | Emergency (ER) | payer OTHER, MEDICARE ==
[~2022-04-26] VITALS: Ht 177.8 cm; Wt 99.8 kg
[~2022-04-26 13:37] MED LIST changes: +AMOX TR-K CLV1 EACH PO; +CARVEDILOL6.25 MG PO; +CERAVE MOISTUR453 GM TOP; +TALTZ AUTO80 MG/1 ML SUB-Q
--- OUTSIDE RECORDS SUMMARY | 2022-04-26 13:40 | XMS ---
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 PHONE: [phone] [facility] 03/05/2019-[facility] PHONE: [phone] Elsa has no Care Guidelines for this patient. Care History Medical/Surgical 04/12/2021 [facility] PATIENT- [facility] ELIGIBLE PLEASE REFER PATIENT TO [facility] FOR NON EMERGENT MEDICAL NEEDS. [facility] CAN SEE PATIENTS SAME DAY FOR APTS IF PATIENT CALLS FIRST THING IN THE MORNING. E.D. VISIT COUNT (12 MO.) [address] [facility] TOTAL 3 NOTE: Visits indicate total known visits. ED/UCC VISIT TRACKING (12 MO.) 04/26/2022 13:38 [facility] TYPE: Emergency COMPLAINT: - FALL 12/14/2021 15:26 [facility] TYPE: Emergency COMPLAINT: - WEAKNESS 08/06/2021 15:07 [facility] [place] TYPE: Emergency COMPLAINT: - GROIN PAIN DIAGNOSES: - Obesity, unspecified - Strain of muscle, fascia and tendon of abdomen, initial encounter - prison (current) use of oral hypoglycemic drugs - manager intermediate (current) use of aspirin - Nicotine dependence, unspecified, uncomplicated - Other custodial (current) drug therapy - Fall on same level, unspecified, initial encounter - Hyperlipidemia, unspecified - Lower abdominal pain, unspecified - Atherosclerotic heart disease of [place] coronary artery without angina pectoris - Type 2 diabetes mellitus with diabetic neuropathy, unspecified INPATIENT VISIT TRACKING (12 MO.) 12/14/2021 19:44 [facility] [place] TYPE: Medical Surgical COMPLAINT: - SEPSIS DIAGNOSES: - prison (current) use of oral hypoglycemic drugs - Nicotine dependence, cigarettes, uncomplicated - Acute kidney failure, unspecified - Contact with and (suspected) exposure to COVID-19 - Chronic pain syndrome - Other abnormalities of gait and mobility - prison (current) use of aromatase inhibitors - Obesity, unspecified - Opioid dependence, uncomplicated - manager intermediate (current) use of insulin - Cellulitis of right lower limb - Type 2 diabetes mellitus with foot ulcer - Psychophysiologic insomnia - Chronic pain syndrome - Non-pressure chronic ulcer of other part of right foot with unspecified severity - Type 2 diabetes mellitus with diabetic neuropathy, unspecified - prison (current) use of aromatase inhibitors - Non-pressure chronic ulcer of other part of right foot with unspecified severity - Presence of coronary angioplasty implant and graft - Other abnormalities of gait and mobility - Acquired absence of right great toe - Pure hypercholesterolemia, unspecified - Acquired absence of other right toe(s) - Acquired absence of right great toe - Hypo-osmolality and hyponatremia - manager intermediate (current) use of antithrombotics/antiplatelets - 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 coronary artery without angina pectoris - Other specified postprocedural states - Hypovolemia - Atherosclerotic heart disease of [place] coronary artery without angina pectoris - Body mass index [BMI] 31.0-31.9, adult - Severe sepsis without septic shock - Psychophysiologic insomnia - manager intermediate (current) use of aspirin - prison (current) use of antithrombotics/antiplatelets - Essential (primary) hypertension - Pure hypercholesterolemia, unspecified - Severe sepsis without septic shock - prison (current) use of antibiotics - Acquired absence of other right toe(s) - Old myocardial infarction - Benign prostatic hyperplasia without lower urinary tract symptoms - Gastro-esophageal reflux disease without esophagitis - Obesity, unspecified - Sepsis, unspecified organism - Type 2 diabetes mellitus with diabetic neuropathy, unspecified - Other specified postprocedural states - Essential (primary) hypertension - Type 2 diabetes mellitus with foot ulcer - 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
[2022-04-26] MEDS ORDERED: HYDROCODON-ACE1 EA10 PO (16:47)
== END 2022-04-26 17:30 | disposition home or self-care (01) ==
LOC: ED 13:37
DX: S22.32XA Fracture of one rib, left side, initial encounter for closed fracture (principal); S13.9XXA Sprain of joints and ligaments of unspecified parts of neck, initial encounter; S80.211A Abrasion, right knee, initial encounter; W01.0XXA Fall on same level from slipping, tripping and stumbling without subsequent striking against object, initial encounter; I25.10 Atherosclerotic heart disease of native coronary artery without angina pectoris; E11.42 Type 2 diabetes mellitus with diabetic polyneuropathy; E78.5 Hyperlipidemia, unspecified; F17.200 Nicotine dependence, unspecified, uncomplicated; E66.9 Obesity, unspecified; I25.2 Old myocardial infarction; Z79.899 Other long term (current) drug therapy; Z79.4 Long term (current) use of insulin; Z79.82 Long term (current) use of aspirin
CPT/HCPCS: 36415; 70450; 71045; 72125; 73030; 80053; 85025; J2270

== ENCOUNTER 2022-11-23 11:43 | Emergency (ER) | payer MEDICARE, OTHER ==
[~2022-11-23] VITALS: Ht 177.8 cm; Wt 100.2 kg
--- OUTSIDE RECORDS SUMMARY | ~2022-11-23 | XMS | Continuity of Care Document ---
Demographics + + + | Address | [address] | | | [place] [address] | + + + | Preferred Language | Unknown | + + + | Marital Status | | + + + | Moravian Affiliation | Unknown | + + + | Race | or | + + + | Ethnic Group | Not or | + + + Author + + + | Author | [facility] | + + + | Organization | [facility] | + + + | Address | [address] | | | [place] [address] | + + + | Phone | | + + + Care Team Providers + + + + | Care Utility Person Name | Role | Phone | + + + + Unavailable | Unavailable | + + + + Unavailable | Unavailable | + + + + Unavailable | Unavailable | + + + + Allergies No information. Encounters No information. Functional Status No information. Immunizations No information. Medications + + + + | date | description | facility | + + + + | 2021-12-20 00:00 | TRIAMCINOLONE 0.1% | [facility] | + + + + | 2022-04-26 00:00 | TRIAMCINOLONE 0.1% | [facility] | + + + + | 2022-09-28 00:00 | TRIAMCINOLONE 0.1% | [facility] | + + + + | 2021-12-20 00:00 | GABAPENTIN | [facility] | + + + + | 2022-04-26 00:00 | GABAPENTIN | [facility] | + + + + | 2022-09-28 00:00 | GABAPENTIN | [facility] | + + + + | 2021-12-16 00:00 | DOXYCYCLINE HYCLATE | [facility] | + + + + | 2021-12-20 00:00 | INSULIN ASPART | [facility] | + + + + | 2022-04-26 00:00 | INSULIN ASPART | [facility] | + + + + | 2022-09-28 00:00 | INSULIN ASPART | [facility] | + + + + | 2021-12-20 00:00 | Ixekizumab | [facility] | + + + + | 2022-04-26 00:00 | Ixekizumab | [facility] | + + + + | 2022-09-28 00:00 | Ixekizumab | [facility] | + + + + | 2021-12-20 00:00 | OMEPRAZOLE | [facility] | + + + + | 2022-04-26 00:00 | OMEPRAZOLE | [facility] | + + + + | 2022-09-28 00:00 | OMEPRAZOLE | [facility] | + + + + | 2021-12-20 00:00 | ASPIRIN | [facility] | + + + + | 2022-04-26 00:00 | ASPIRIN | [facility] | + + + + | 2022-09-28 00:00 | ASPIRIN | [facility] | + + + + | 2021-12-20 00:00 | MAGNESIUM OXIDE | [facility] | + + + + | 2022-04-26 00:00 | MAGNESIUM OXIDE | [facility] | + + + + | 2022-09-28 00:00 | MAGNESIUM OXIDE | [facility] | + + + + | 2021-12-16 00:00 | CARVEDILOL | [facility] | + + + + | 2021-12-20 00:00 | Semaglutide | [facility] | + + + + | 2022-04-26 00:00 | Semaglutide | [facility] | + + + + | 2022-09-28 00:00 | Semaglutide | [facility] | + + + + | 2021-12-20 00:00 | CALCIUM CARBONATE | [facility] | + + + + | 2022-04-26 00:00 | CALCIUM CARBONATE | [facility] | + + + + | 2022-09-28 00:00 | CALCIUM CARBONATE | [facility] | + + + + | 2021-12-20 00:00 | INSULIN GLARGINE | [facility] | + + + + | 2022-04-26 00:00 | INSULIN GLARGINE | [facility] | + + + + | 2022-09-28 00:00 | INSULIN GLARGINE | [facility] | + + + + | 2021-12-20 00:00 | DEXTROSE | [facility] | + + + + | 2022-04-26 00:00 | DEXTROSE | [facility] | + + + + | 2022-09-28 00:00 | DEXTROSE | [facility] | + + + + | 2021-12-20 00:00 | LISINOPRIL | [facility] | + + + + | 2022-04-26 00:00 | LISINOPRIL | [facility] | + + + + | 2022-09-28 00:00 | LISINOPRIL | [facility] | + + + + | 2021-12-20 00:00 | ASPIRIN | [facility] | + + + + | 2022-04-26 00:00 | ASPIRIN | [facility] | + + + + | 2022-09-28 00:00 | ASPIRIN | [facility] | + + + + | 2021-12-16 00:00 | AMOXICILLIN/POTASSIUM CLAV | [facility] | | | | | + + + + | 2021-12-20 00:00 | ATORVASTATIN | [facility] | + + + + | 2022-04-26 00:00 | ATORVASTATIN | [facility] | + + + + | 2022-09-28 00:00 | ATORVASTATIN | [facility] | + + + + | 2021-12-20 00:00 | Cholecalciferol (Vitamin | [facility] | | | D3) | | + + + + | 2022-04-26 00:00 | Cholecalciferol (Vitamin | [facility] | | | D3) | | + + + + | 2022-09-28 00:00 | Cholecalciferol (Vitamin | [facility] | | | D3) | | + + + + | 2021-12-20 00:00 | TRAMADOL HCL | [facility] | + + + + | 2022-04-26 00:00 | TRAMADOL HCL | [facility] | + + + + | 2022-09-28 00:00 | TRAMADOL HCL | [facility] | + + + + | 2021-12-20 00:00 | TRAZODONE HCL | [facility] | + + + + | 2022-04-26 00:00 | TRAZODONE HCL | [facility] | + + + + | 2022-09-28 00:00 | TRAZODONE HCL | [facility] | + + + + | 2022-04-26 00:00 | HYDROCODONE | [facility] | | | BIT/ACETAMINOPHEN | | + + + + | 2013-02-14 00:00 | HYDROCODONE | [facility] | | | BIT/ACETAMINOPHEN | | + + + + | 2021-12-20 00:00 | METFORMIN HCL | [facility] | + + + + | 2022-04-26 00:00 | METFORMIN HCL | [facility] | + + + + | 2022-09-28 00:00 | METFORMIN HCL | [facility] | + + + + | 2021-12-20 00:00 | TAMSULOSIN HCL | [facility] | + + + + | 2022-04-26 00:00 | TAMSULOSIN HCL | [facility] | + + + + | 2022-09-28 00:00 | TAMSULOSIN HCL | [facility] | + + + + | 2021-12-20 00:00 | MORPHINE SULFATE | [facility] | + + + + | 2022-04-26 00:00 | MORPHINE SULFATE | [facility] | + + + + | 2022-09-28 00:00 | MORPHINE SULFATE | [facility] | + + + + Problems + + + + | date | description | facility | + + + + | 2021-04-20 19:05:12 | Type 2 diabetes mellitus | [facility] | | | with other skin [facility] | | | complications | | + + + + | 2021-04-20 19:05:12 | Type 2 diabetes mellitus | [facility] | | | without complications | [facility] | + + + + | 2021-04-20 19:05:12 | Local infection of the | [facility] | | | skin and subcutaneous [facility] | | | tissue, unspecified | | + + + + | 2021-04-20 19:05:12 | 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 Results/Labs +--------+--------+ + +---------+--------+ + | test | date | author | facility | value | unit | | | | | | | | | interpreta | | | | | | | | tion | +--------+--------+ + +---------+--------+ + + + | Result panel 1 | + + + + + + +---------+ + + | (unknown) | (no date) | (unknown) | [facility] | (no | (units | (unknown) | | | [facility] | value[facility] | unknown) | [facility] | | | | + + + + +---------+ + + + + | Result panel 2 | + + + + + + +---------+ + + | (unknown) | (no date) | (unknown) | [facility] | (no | (units | (unknown) | | | | [facility] | value) | unknown) | | [facility] | | | | + + + + +---------+ + + + + | Result panel 3 | + + + + + + +---------+ + + | (unknown) | (no date) | (unknown) | [facility] | (no | (units | (unknown) | | | | [facility] | value) | unknown) | | [facility] | | | | + + + + +---------+ + + + + | Result panel 4 | + + + + + + +---------+ + + | (unknown) | (no date) | (unknown) | [facility] | (no | (units | (unknown) | | | | [facility] | value) | unknown) | | | [facility] | | | | + + + + +---------+ + + + + | Result panel 5 | + + + + + + +---------+ + + | (unknown) | (no date) | (unknown) | [facility] | (no | (units | (unknown) | | | | [facility] | value) | unknown) | | | [facility] | | | | + + + + +---------+ + + + + | Result panel 6 | + + + + + + +---------+ + + | (unknown) | (no date) | (unknown) | [facility] | (no | (units | (unknown) | | | | [facility] | value) | unknown) | | | | [facility] | | | | + + + + +---------+ + + + + | Result panel 7 | + + + + + + +---------+ + + | (unknown) | (no date) | (unknown) | [facility] | (no | (units | (unknown) | | | | [facility] | value) | unknown) | | | [facility] | | | | + + + + +---------+ + + + + | Result panel 8 | + + + + + + +---------+ + + | (unknown) | (no date) | (unknown) | [facility] | (no | (units | (unknown) | | | | [facility] | value) | unknown) | | | | [facility] | | | | + + + + +---------+ + + + + | Result panel 9 | + + + + + + +---------+ + + | (unknown) | (no date) | (unknown) | [facility] | (no | (units | (unknown) | | | | [facility] | value) | unknown) | | | | [facility] | | | | + + + + +---------+ + + + + | Result panel 10 | + + + + + + +---------+ + + | (unknown) | (no date) | (unknown) | [facility] | (no | (units | (unknown) | | | | [facility] | value) | unknown) | | | | [facility] | | | | + + + + +---------+ + + + + | Result panel 11 | + + + + + + +---------+ + + | (unknown) | (no date) | (unknown) | [facility] | (no | (units | (unknown) | | | | [facility] | value) | unknown) | | | [facility] | | | | + + + + +---------+ + + + + | Result panel 12 | + + + + + + +---------+ + + | (unknown) | (no date) | (unknown) | [facility] | (no | (units | (unknown) | | | | [facility] | value) | unknown) | | | | [facility] | | | | + + + + +---------+ + + + + | Result panel 13 | + + + + + + +---------+ + + | (unknown) | (no date) | (unknown) | [facility] | (no | (units | (unknown) | | | | [facility] | value) | unknown) | | | | [facility] | | | | + + + + +---------+ + + + + | Result panel 14 | + + + + + + +---------+ + + | (unknown) | (no date) | (unknown) | [facility] | (no | (units | (unknown) | | | | [facility] | value) | unknown) | | | | [facility] | | | | + + + + +---------+ + + + + | Result panel 15 | + + + + + + +---------+ + + | (unknown) | (no date) | (unknown) | [facility] | (no | (units | (unknown) | | | | [facility] | value) | unknown) | | | | [facility] | | | | + + + + +---------+ + + + + | Result panel 16 | + + + + + + +---------+ + + | (unknown) | (no date) | (unknown) | [facility] | (no | (units | (unknown) | | | | [facility] | value) | unknown) | | | | [facility] | | | | + + + + +---------+ + + + + | Result panel 17 | + + + + + + +---------+ + + | (unknown) | (no date) | (unknown) | [facility] | (no | (units | (unknown) | | | | [facility] | value) | unknown) | | | | [facility] | | | | + + + + +---------+ + + + + | Result panel 18 | + + + + + + +---------+ + + | (unknown) | (no date) | (unknown) | [facility] | (no | (units | (unknown) | | | | [facility] | value) | unknown) | | | | [facility] | | | | + + + + +---------+ + + + + | Result panel 19 | + + + + + + +---------+ + + | (unknown) | (no date) | (unknown) | [facility] | (no | (units | (unknown) | | | | [facility] | value) | unknown) | | | | [facility] | | | | + + + + +---------+ + + + + | Result panel 20 | + + + + + + +---------+ + + | (unknown) | (no date) | (unknown) | [facility] | (no | (units | (unknown) | | | | [facility] | value) | unknown) | | | | [facility] | | | | + + + + +---------+ + + + + | Result panel 21 | + + + + + + +---------+ + + | (unknown) | (no date) | (unknown) | [facility] | (no | (units | (unknown) | | | | [facility] | value) | unknown) | | | | [facility] | | | | + + + + +---------+ + + + + | Result panel 22 | + + + + + + +---------+ + + | (unknown) | (no date) | (unknown) | [facility] | (no | (units | (unknown) | | | | [facility] | value) | unknown) | | | | [facility] | | | | + + + + +---------+ + + + + | Result panel 23 | + + + + + + +---------+ + + | (unknown) | (no date) | (unknown) | [facility] | (no | (units | (unknown) | | | | [facility] | value) | unknown) | | | | [facility] | | | | + + + + +---------+ + + + + | Result panel 24 | + + + + + + +---------+ + + | (unknown) | (no date) | (unknown) | [facility] | (no | (units | (unknown) | | | | [facility] | value) | unknown) | | | | [facility] | | | | + + + + +---------+ + + + + | Result panel 25 | + + + + + + +---------+ + + | (unknown) | (no date) | (unknown) | [facility] | (no | (units | (unknown) | | | | [facility] | value) | unknown) | | | | [facility] | | | | + + + + +---------+ + + + + | Result panel 26 | + + + + + + +---------+ + + | (unknown) | (no date) | (unknown) | [facility] | (no | (units | (unknown) | | | | [facility] | value) | unknown) | | | | [facility] | | | | + + + + +---------+ + + + + | Result panel 27 | + + + + + + +---------+ + + | (unknown) | (no date) | (unknown) | [facility] | (no | (units | (unknown) | | | | [facility] | value) | unknown) | | | | [facility] | | | | + + + + +---------+ + + + + | Result panel 28 | + + + + + + +---------+ + + | (unknown) | (no date) | (unknown) | [facility] | (no | (units | (unknown) | | | | [facility] | value) | unknown) | | | | [facility] | | | | + + + + +---------+ + + + + | Result panel 29 | + + + + + + +---------+ + + | (unknown) | (no date) | (unknown) | [facility] | (no | (units | (unknown) | | | | [facility] | value) | unknown) | | | | [facility] | | | | + + + + +---------+ + + + + | Result panel 30 | + + + + + + +---------+ + + | (unknown) | (no date) | (unknown) | [facility] | (no | (units | (unknown) | | | | [facility] | value) | unknown) | | | | [facility] | | | | + + + + +---------+ + + + + | Result panel 31 | + + + + + + +---------+ + + | (unknown) | (no date) | (unknown) | [facility] | (no | (units | (unknown) | | | | [facility] | value) | unknown) | | | | [facility] | | | | + + + + +---------+ + + + + | Result panel 32 | + + + + + + +---------+ + + | (unknown) | (no date) | (unknown) | [facility] | (no | (units | (unknown) | | | | [facility] | value) | unknown) | | | | [facility] | | | | + + + + +---------+ + + + + | Result panel 33 | + + + + + + +---------+ + + | (unknown) | (no date) | (unknown) | [facility] | (no | (units | (unknown) | | | | [facility] | value) | unknown) | | | | [facility] | | | | + + + + +---------+ + + + + | Result panel 34 | + + + + + + +---------+ + + | (unknown) | (no date) | (unknown) | [facility] | (no | (units | (unknown) | | | | [facility] | value) | unknown) | | | | [facility] | | | | + + + + +---------+ + + + + | Result panel 35 | + + + + + + +---------+ + + | (unknown) | (no date) | (unknown) | [facility] | (no | (units | (unknown) | | | | [facility] | value) | unknown) | | | | [facility] | | | | + + + + +---------+ + + + + | Result panel 36 | + + + + + + +---------+ + + | (unknown) | (no date) | (unknown) | [facility] | (no | (units | (unknown) | | | | [facility] | value) | unknown) | | | | [facility] | | | | + + + + +---------+ + + + + | Result panel 37 | + + + + + + +---------+ + + | (unknown) | (no date) | (unknown) | [facility] | (no | (units | (unknown) | | | | [facility] | value) | unknown) | | | | [facility] | | | | + + + + +---------+ + + + + | Result panel 38 | + + + + + + +---------+ + + | (unknown) | (no date) | (unknown) | [facility] | (no | (units | (unknown) | | | | [facility] | value) | unknown) | | | | [facility] | | | | + + + + +---------+ + + + + | Result panel 39 | + + + + + + +---------+ + + | (unknown) | (no date) | (unknown) | [facility] | (no | (units | (unknown) | | | | [facility] | value) | unknown) | | | | [facility] | | | | + + + + +---------+ + + + + | Result panel 40 | + + + + + + +---------+ + + | (unknown) | (no date) | (unknown) | [facility] | (no | (units | (unknown) | | | | [facility] | value) | unknown) | | | [facility] | | | | + + + + +---------+ + + + + | Result panel 41 | + + + + + + +---------+ + + | (unknown) | (no date) | (unknown) | [facility] | (no | (units | (unknown) | | | | [facility] | value) | unknown) | | | | [facility] | | | | + + + + +---------+ + + + + | Result panel 42 | + + + + + + +---------+ + + | (unknown) | (no date) | (unknown) | [facility] | (no | (units | (unknown) | | | | [facility] | value) | unknown) | | | | [facility] | | | | + + + + +---------+ + + + + | Result panel 43 | + + + + + + +---------+ + + | (unknown) | (no date) | (unknown) | [facility] | (no | (units | (unknown) | | | | [facility] | value) | unknown) | | | | [facility] | | | | + + + + +---------+ + + + + | Result panel 44 | + + + + + + +---------+ + + | (unknown) | (no date) | (unknown) | [facility] | (no | (units | (unknown) | | | | [facility] | value) | unknown) | | | | [facility] | | | | + + + + +---------+ + + + + | Result panel 45 | + + + + + + +---------+ + + | (unknown) | (no date) | (unknown) | [facility] | (no | (units | (unknown) | | | | [facility] | value) | unknown) | | | | [facility] | | | | + + + + +---------+ + + + + | Result panel 46 | + + + + + + +---------+ + + | (unknown) | (no date) | (unknown) | [facility] | (no | (units | (unknown) | | | | [facility] | value) | unknown) | | | | [facility] | | | | + + + + +---------+ + + + + | Result panel 47 | + + + + + + +---------+ + + | (unknown) | (no date) | (unknown) | [facility] | (no | (units | (unknown) | | | | [facility] | value) | unknown) | | | | [facility] | | | | + + + + +---------+ + + + + | Result panel 48 | + + + + + + +---------+ + + | (unknown) | (no date) | (unknown) | [facility] | (no | (units | (unknown) | | | | [facility] | value) | unknown) | | | | [facility] | | | | + + + + +---------+ + + + + | Result panel 49 | + + + + + + +---------+ + + | (unknown) | (no date) | (unknown) | [facility] | (no | (units | (unknown) | | | | [facility] | value) | unknown) | | | | [facility] | | | | + + + + +---------+ + + + + | Result panel 50 | + + + + + + +---------+ + + | (unknown) | (no date) | (unknown) | [facility] | (no | (units | (unknown) | | | | [facility] | value) | unknown) | | | | [facility] | | | | + + + + +---------+ + + + + | Result panel 51 | + + + + + + +---------+ + + | (unknown) | (no date) | (unknown) | [facility] | (no | (units | (unknown) | | | | [facility] | value) | unknown) | | | | [facility] | | | | + + + + +---------+ + + + + | Result panel 52 | + + + + + + +---------+ + + | (unknown) | (no date) | (unknown) | [facility] | (no | (units | (unknown) | | | | [facility] | value) | unknown) | | | | [facility] | | | | + + + + +---------+ + + + + | Result panel 53 | + + + + + + +---------+ + + | (unknown) | (no date) | (unknown) | [facility] | (no | (units | (unknown) | | | | [facility] | value) | unknown) | | | | [facility] | | | | + + + + +---------+ + + + + | Result panel 54 | + + + + + + +---------+ + + | (unknown) | (no date) | (unknown) | [facility] | (no | (units | (unknown) | | | | [facility] | value) | unknown) | | | | [facility] | | | | + + + + +---------+ + + + + | Result panel 55 | + + + + + + +---------+ + + | (unknown) | (no date) | (unknown) | [facility] | (no | (units | (unknown) | | | | [facility] | value) | unknown) | | | | [facility] | | | | + + + + +---------+ + + + + | Result panel 56 | + + + + + + +---------+ + + | (unknown) | (no date) | (unknown) | [facility] | (no | (units | (unknown) | | | | [facility] | value) | unknown) | | | | [facility] | | | | + + + + +---------+ + + + + | Result panel 57 | + + + + + + +---------+ + + | (unknown) | (no date) | (unknown) | [facility] | (no | (units | (unknown) | | | | [facility] | value) | unknown) | | | | [facility] | | | | + + + + +---------+ + + + + | Result panel 58 | + + + + + + +---------+ + + | (unknown) | (no date) | (unknown) | [facility] | (no | (units | (unknown) | | | | [facility] | value) | unknown) | | | | [facility] | | | | + + + + +---------+ + + + + | Result panel 59 | + + + + + + +---------+ + + | (unknown) | (no date) | (unknown) | [facility] | (no | (units | (unknown) | | | | [facility] | value) | unknown) | | | | [facility] | | | | + + + + +---------+ + + + + | Result panel 60 | + + + + + + +---------+ + + | (unknown) | (no date) | (unknown) | [facility] | (no | (units | (unknown) | | | | [facility] | value) | unknown) | | | | [facility] | | | | + + + + +---------+ + + + + | Result panel 61 | + + + + + + +---------+ + + | (unknown) | (no date) | (unknown) | [facility] | (no | (units | (unknown) | | | | [facility] | value) | unknown) | | | | [facility] | | | | + + + + +---------+ + + + + | Result panel 62 | + + + + + + +---------+ + + | (unknown) | (no date) | (unknown) | [facility] | (no | (units | (unknown) | | | | [facility] | value) | unknown) | | | | [facility] | | | | + + + + +---------+ + + + + | Result panel 63 | + + + + + + +---------+ + + | (unknown) | (no date) | (unknown) | [facility] | (no | (units | (unknown) | | | | [facility] | value) | unknown) | | | | [facility] | | | | + + + + +---------+ + + + + | Result panel 64 | + + + + + + +---------+ + + | (unknown) | (no date) | (unknown) | [facility] | (no | (units | (unknown) | | | | [facility] | value) | unknown) | | | | [facility] | | | | + + + + +---------+ + + + + | Result panel 65 | + + + + + + +---------+ + + | (unknown) | (no date) | (unknown) | [facility] | (no | (units | (unknown) | | | | [facility] | value) | unknown) | | | [facility] | | | | + + + + +---------+ + + + + | Result panel 66 | + + + + + + +---------+ + + | (unknown) | (no date) | (unknown) | [facility] | (no | (units | (unknown) | | | | [facility] | value) | unknown) | | | [facility] | | | | + + + + +---------+ + + + + | Result panel 67 | + + + + + + +---------+ + + | (unknown) | (no date) | (unknown) | [facility] | (no | (units | (unknown) | | | | [facility] | value) | unknown) | | | [facility] | | | | + + + + +---------+ + + Social History No information. Vital Signs + + + +---------+ | date | measurement | value | units | + + + +---------+ | 2021-08-06 00:00 | BMI | 31.7 | kg/m2 | + + + +---------+ | 2021-08-06 00:00 | BP_diastolic | 77 | mmHg | + + + +---------+ | 2021-08-06 00:00 | BP_systolic | 158 | mmHg | + + + +---------+ | 2021-08-06 00:00 | heart_rate | 82 | /min | + + + +---------+ | 2021-08-06 00:00 | height_metric | 177.8 | cm | + + + +---------+ | 2021-08-06 00:00 | height_standard | 70 | in | + + + +---------+ | 2021-08-06 00:00 | o2_saturation | 97 | % | + + + +---------+ | 2021-08-06 00:00 | respiration_rate | 14 | /min | + + + +---------+ | 2021-08-06 00:00 | temperature_metric | 36.89 | C | | | | | | + + + +---------+ | 2021-08-06 00:00 | | 98.4 | F | | | temperature_standar | | | | | d | | | + + + +---------+ | 2021-08-06 00:00 | weight_metric | 100.24 | kg | + + + +---------+ | 2021-08-06 00:00 | weight_standard | 220.99 | lb | + + + +---------+ | 2021-08-06 00:00 | weight_standard | 221 | lb | + + + +---------+ | 2021-12-14 00:00 | BMI | 31.6 | kg/m2 | + + + +---------+ | 2021-12-14 00:00 | height_metric | 177.8 | cm | + + + +---------+ | 2021-12-14 00:00 | height_standard | 70 | in | + + + +---------+ | 2021-12-14 00:00 | weight_metric | 100 | kg | + + + +---------+ | 2021-12-14 00:00 | weight_standard | 220.46 | lb | + + + +---------+ | 2021-12-16 00:00 | BP_diastolic | 69 | mmHg | + + + +---------+ | 2021-12-16 00:00 | BP_systolic | 147 | mmHg | + + + +---------+ | 2021-12-16 00:00 | heart_rate | 100 | /min | + + + +---------+ | 2021-12-16 00:00 | o2_saturation | 96 | % | + + + +---------+ | 2021-12-16 00:00 | respiration_rate | 17 | /min | + + + +---------+ | 2021-12-16 00:00 | temperature_metric | 37.06 | C | | | | | | + + + +---------+ | 2021-12-16 00:00 | | 98.7 | F | | | temperature_standar | | | | | d | | | + + + +---------+ | 2022-04-26 00:00 | BMI | 31.6 | kg/m2 | + + + +---------+ | 2022-04-26 00:00 | BP_diastolic | 90 | mmHg | + + + +---------+ | 2022-04-26 00:00 | BP_systolic | 165 | mmHg | + + + +---------+ | 2022-04-26 00:00 | heart_rate | 91 | /min | + + + +---------+ | 2022-04-26 00:00 | height_metric | 177.8 | cm | + + + +---------+ | 2022-04-26 00:00 | height_standard | 70 | in | + + + +---------+ | 2022-04-26 00:00 | o2_saturation | 97 | % | + + + +---------+ | 2022-04-26 00:00 | respiration_rate | 16 | /min | + + + +---------+ | 2022-04-26 00:00 | temperature_metric | 36.67 | C | | | | | | + + + +---------+ | 2022-04-26 00:00 | | 98 | F | | | temperature_standar | | | | | d | | | + + + +---------+ | 2022-04-26 00:00 | weight_metric | 99.79 | kg | + + + +---------+ | 2022-04-26 00:00 | weight_standard | 220 | lb | + + + +---------+ | 2022-09-28 00:00 | BMI | 31.7 | kg/m2 | + + + +---------+ | 2022-09-28 00:00 | BP_diastolic | 82 | mmHg | + + + +---------+ | 2022-09-28 00:00 | BP_systolic | 147 | mmHg | + + + +---------+ | 2022-09-28 00:00 | heart_rate | 93 | /min | + + + +---------+ | 2022-09-28 00:00 | height_metric | 177.8 | cm | + + + +---------+ | 2022-09-28 00:00 | height_standard | 70 | in | + + + +---------+ | 2022-09-28 00:00 | o2_saturation | 95 | % | + + + +---------+ | 2022-09-28 00:00 | respiration_rate | 16 | /min | + + + +---------+ | 2022-09-28 00:00 | temperature_metric | 36.72 | C | | | | | | + + + +---------+ | 2022-09-28 00:00 | | 98.1 | F | | | temperature_standar | | | | | d | | | + + + +---------+ | 2022-09-28 00:00 | weight_metric | 100.24 | kg | + + + +---------+ | 2022-09-28 00:00 | weight_standard | 220.99 | lb | + + + +---------+ | 2022-09-28 00:00 | weight_standard | 221 | lb | + + + +---------+"
--- OUTSIDE RECORDS SUMMARY | ~2022-11-23 | XMS | Continuity of Care Document ---
Demographics + + + | Address | [address] | | | [place] [address] | + + + | Preferred Language | Unknown | + + + | Marital Status | | + + + | Mandaeism Affiliation | Unknown | + + + | Race | or | + + + | Ethnic Group | Not or | + + + Author + + + | Author | [facility] | + + + | Organization | [facility] | + + + | Address | [address] | | | [place] [address] | + + + | Phone | | + + + Care Team Providers + + + + | Care Adzing And Boring Machine Feeder Name | Role | Phone | + [...] | 2021-12-20 00:00 | TRIAMCINOLONE 0.1% | [facility] | + + + + | 2022-04-26 00:00 | TRIAMCINOLONE 0.1% | [facility] | + + + + | 2022-09-28 00:00 | TRIAMCINOLONE 0.1% | [facility] | + + + + | 2021-12-20 00:00 | GABAPENTIN | [facility] | + + + + | 2022-04-26 00:00 | GABAPENTIN | [facility] | + + + + | 2022-09-28 00:00 | GABAPENTIN | [facility] | + + + + | 2021-12-16 00:00 | DOXYCYCLINE HYCLATE | [facility] | + + + + | 2021-12-20 00:00 | INSULIN ASPART | [facility] | + + + + | 2022-04-26 00:00 | INSULIN ASPART | [facility] | + + + + | 2022-09-28 00:00 | INSULIN ASPART | [facility] | + + + + | 2021-12-20 00:00 | Ixekizumab | [facility] | + + + + | 2022-04-26 00:00 | Ixekizumab | [facility] | + + + + | 2022-09-28 00:00 | Ixekizumab | [facility] | + + + + | 2021-12-20 00:00 | OMEPRAZOLE | [facility] | + + + + | 2022-04-26 00:00 | OMEPRAZOLE | [facility] | + + + + | 2022-09-28 00:00 | OMEPRAZOLE | [facility] | + + + + | 2021-12-20 00:00 | ASPIRIN | [facility] | + + + + | 2022-04-26 00:00 | ASPIRIN | [facility] | + + + + | 2022-09-28 00:00 | ASPIRIN | [facility] | + + + + | 2021-12-20 00:00 | MAGNESIUM OXIDE | [facility] | + + + + | 2022-04-26 00:00 | MAGNESIUM OXIDE | [facility] | + + + + | 2022-09-28 00:00 | MAGNESIUM OXIDE | [facility] | + + + + | 2021-12-16 00:00 | CARVEDILOL | [facility] | + + + + | 2021-12-20 00:00 | Semaglutide | [facility] | + + + + | 2022-04-26 00:00 | Semaglutide | [facility] | + + + + | 2022-09-28 00:00 | Semaglutide | [facility] | + + + + | 2021-12-20 00:00 | CALCIUM CARBONATE | [facility] | + + + + | 2022-04-26 00:00 | CALCIUM CARBONATE | [facility] | + + + + | 2022-09-28 00:00 | CALCIUM CARBONATE | [facility] | + + + + | 2021-12-20 00:00 | INSULIN GLARGINE | [facility] | + + + + | 2022-04-26 00:00 | INSULIN GLARGINE | [facility] | + + + + | 2022-09-28 00:00 | INSULIN GLARGINE | [facility] | + + + + | 2021-12-20 00:00 | DEXTROSE | [facility] | + + + + | 2022-04-26 00:00 | DEXTROSE | [facility] | + + + + | 2022-09-28 00:00 | DEXTROSE | [facility] | + + + + | 2021-12-20 00:00 | LISINOPRIL | [facility] | + + + + | 2022-04-26 00:00 | LISINOPRIL | [facility] | + + + + | 2022-09-28 00:00 | LISINOPRIL | [facility] | + + + + | 2021-12-20 00:00 | ASPIRIN | [facility] | + + + + | 2022-04-26 00:00 | ASPIRIN | [facility] | + + + + | 2022-09-28 00:00 | ASPIRIN | [facility] | + + + + | 2021-12-16 00:00 | AMOXICILLIN/POTASSIUM CLAV | [facility] | | | | | + + + + | 2021-12-20 00:00 | ATORVASTATIN | [facility] | + + + + | 2022-04-26 00:00 | ATORVASTATIN | [facility] | + + + + | 2022-09-28 00:00 | ATORVASTATIN | [facility] | + + + + | 2021-12-20 00:00 | Cholecalciferol (Vitamin | [facility] | | | D3) | | + + + + | 2022-04-26 00:00 | Cholecalciferol (Vitamin | [facility] | | | D3) | | + + + + | 2022-09-28 00:00 | Cholecalciferol (Vitamin | [facility] | | | D3) | | + + + + | 2021-12-20 00:00 | TRAMADOL HCL | [facility] | + + + + | 2022-04-26 00:00 | TRAMADOL HCL | [facility] | + + + + | 2022-09-28 00:00 | TRAMADOL HCL | [facility] | + + + + | 2021-12-20 00:00 | TRAZODONE HCL | [facility] | + + + + | 2022-04-26 00:00 | TRAZODONE HCL | [facility] | + + + + | 2022-09-28 00:00 | TRAZODONE HCL | [facility] | + + + + | 2022-04-26 00:00 | HYDROCODONE | [facility] | | | BIT/ACETAMINOPHEN | | + + + + | 2013-02-14 00:00 | HYDROCODONE | [facility] | | | BIT/ACETAMINOPHEN | | + + + + | 2021-12-20 00:00 | METFORMIN HCL | [facility] | + + + + | 2022-04-26 00:00 | METFORMIN HCL | [facility] | + + + + | 2022-09-28 00:00 | METFORMIN HCL | [facility] | + + + + | 2021-12-20 00:00 | TAMSULOSIN HCL | [facility] | + + + + | 2022-04-26 00:00 | TAMSULOSIN HCL | [facility] | + + + + | 2022-09-28 00:00 | TAMSULOSIN HCL | [facility] | + + + + | 2021-12-20 00:00 | MORPHINE SULFATE | [facility] | + + + + | 2022-04-26 00:00 | MORPHINE SULFATE | [facility] | + + + + | 2022-09-28 00:00 | MORPHINE SULFATE | [facility] | + + + + [...] + + + | 2021-04-20 19:05:12 | manager terminal (current) use of | [employer] | | | insulin | [employer] | + + + + | 2021-08-06 00:00 | Strain of right inguinal | [facility] | | | region | | + + + + | 2021-12-14 00:00 | Cellulitis of right lower | [facility] | | | extremity | [...]
--- OUTSIDE RECORDS SUMMARY | 2022-11-23 11:47 | XMS ---
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 PHONE: [phone] [facility] Case Management 03/17/2021-[facility] PHONE: [phone] Elsa has no Care Guidelines for this patient. Care History Medical/Surgical 04/12/2021 [facility] PATIENT- [facility] ELIGIBLE PLEASE REFER PATIENT TO [facility] FOR NON EMERGENT MEDICAL NEEDS. [facility] CAN SEE PATIENTS SAME DAY FOR APTS IF PATIENT CALLS FIRST THING IN THE MORNING. E.D. VISIT COUNT (12 MO.) [address] [facility] TOTAL 4 NOTE: Visits indicate total known visits. ED/UCC VISIT TRACKING (12 MO.) 11/23/2022 11:43 [facility] TYPE: Emergency COMPLAINT: - BLOOD SUGAR PROBLEM 09/28/2022 15:59 [facility] TYPE: Emergency COMPLAINT: - CHEST PAIN DIAGNOSES: - Atherosclerotic heart disease of [place] coronary artery without angina pectoris - Chest pain, unspecified - group home (current) use of insulin - Nicotine dependence, unspecified, uncomplicated - Obesity, unspecified - Old myocardial infarction - Other senior living (current) drug therapy - Presence of coronary angioplasty implant and graft - Type 2 diabetes mellitus with diabetic polyneuropathy 04/26/2022 13:38 [facility] TYPE: Emergency COMPLAINT: - FALL DIAGNOSES: - Abrasion, right knee, initial encounter - Atherosclerotic heart disease of [place] coronary artery without angina pectoris - Fall on same level from slipping, tripping and stumbling without subsequent striking against object, initial encounter - Fracture of one rib, left side, initial encounter for closed fracture - Hyperlipidemia, unspecified - group home (current) use of aspirin - group home (current) use of insulin - Nicotine dependence, unspecified, uncomplicated - Obesity, unspecified - Old myocardial infarction - Other terminal supervisor (current) drug therapy - Sprain of joints and ligaments of unspecified parts of neck, initial encounter - Type 2 diabetes mellitus with diabetic polyneuropathy 12/14/2021 15:26 [facility] TYPE: Emergency COMPLAINT: - WEAKNESS INPATIENT VISIT TRACKING (12 MO.) 12/14/2021 19:[address] [facility] TYPE: Medical Surgical COMPLAINT: - SEPSIS DIAGNOSES: - Acquired absence of other right toe(s) - Acquired absence of other right toe(s) - Acquired absence of right great toe - Acquired absence of right great toe - Acute kidney failure, unspecified - Acute kidney failure, unspecified - Atherosclerotic heart disease of [place] coronary artery without angina pectoris - Atherosclerotic heart disease of [place] coronary artery without angina pectoris - Benign prostatic hyperplasia without lower urinary tract symptoms - Benign prostatic hyperplasia without lower urinary tract symptoms - Body mass index [BMI] 31.0-31.9, adult - Body mass index [BMI] 31.0-31.9, adult - Cellulitis of right lower limb - Cellulitis of right lower limb - Chronic pain syndrome - Chronic pain syndrome - Contact with and (suspected) exposure to COVID-19 - Contact with and (suspected) exposure to COVID-19 - Essential (primary) hypertension - Essential (primary) hypertension - Gastro-esophageal reflux disease without esophagitis - Gastro-esophageal reflux disease without esophagitis - Hypo-osmolality and hyponatremia - Hypo-osmolality and hyponatremia - Hypovolemia - Hypovolemia - supervisor intermediates (current) use of antibiotics - supervisor intermediates (current) use of antibiotics - group home (current) use of antithrombotics/antiplatelets - supervisor intermediates (current) use of antithrombotics/antiplatelets - supervisor intermediates (current) use of aromatase inhibitors - supervisor intermediates (current) use of aromatase inhibitors - group home (current) use of aspirin - group home (current) use of aspirin - supervisor intermediates (current) use of insulin - group home (current) use of insulin - group home (current) use of oral hypoglycemic drugs - Nicotine dependence, cigarettes, uncomplicated - Nicotine dependence, cigarettes, uncomplicated - Non-pressure chronic ulcer of other part of right foot with unspecified severity - Non-pressure chronic ulcer of other part of right foot with unspecified severity - Obesity, unspecified - Obesity, unspecified - Old myocardial infarction - Old myocardial infarction - Opioid dependence, uncomplicated - Opioid dependence, uncomplicated - Other abnormalities of gait and mobility - Other abnormalities of gait and mobility - Other senior living (current) drug therapy - Other senior living (current) drug therapy - Other specified postprocedural states - Other specified postprocedural states - Presence of coronary angioplasty implant and graft - Presence of coronary angioplasty implant and graft - Psychophysiologic insomnia - Psychophysiologic insomnia - Pure hypercholesterolemia, unspecified - Pure hypercholesterolemia, unspecified - Sepsis, unspecified organism - Severe sepsis without septic shock - Severe sepsis without septic shock - Type 2 diabetes mellitus with diabetic neuropathy, unspecified - Type 2 diabetes mellitus with diabetic neuropathy, unspecified - Type 2 diabetes mellitus with foot ulcer - Type 2 diabetes mellitus with foot ulcer [email or web address]
[2022-11-23 13:20] VITALS: BP 141/82
== END 2022-11-23 13:20 | disposition home or self-care (01) ==
LOC: ED 11:43
DX: E11.649 Type 2 diabetes mellitus with hypoglycemia without coma (principal); E11.42 Type 2 diabetes mellitus with diabetic polyneuropathy; I25.10 Atherosclerotic heart disease of native coronary artery without angina pectoris; E78.5 Hyperlipidemia, unspecified; I25.2 Old myocardial infarction; E66.9 Obesity, unspecified; F17.200 Nicotine dependence, unspecified, uncomplicated; Z79.899 Other long term (current) drug therapy; Z79.4 Long term (current) use of insulin; Z79.82 Long term (current) use of aspirin; Z95.5 Presence of coronary angioplasty implant and graft
CPT/HCPCS: 36415; 80048; 85025; 99285

== ENCOUNTER 2022-12-29 07:25 | Day surgery (SDC) | payer MEDICARE, OTHER ==
[2022-12-27 13:21] VITALS: BP 106/59
[~2022-12-29] VITALS: Ht 177.8 cm; Wt 100.5 kg
[~2022-12-29 07:25] MED LIST changes: +JARDIANCE10 MG PO; +OZEMPIC2 MG/0.75; +UREA85 G1 TOP
[2022-12-29 08:23] VITALS: BP 123/70
[2022-12-29 10:35] VITALS: BP 148/81
--- NOTE | 2022-12-29 11:24 | NUR ---
12/29/22 1124 Jana Blanco 1006- PT ARRIVES TO PACU, SLEEPING BUT REACTIVE. LEFT LATERAL POSITION. MONITORS APPLIED. LR INFUSING TO RFA IV. ENCOURAGED TO PASS GAS. ABD ROUND, BUT SOFT. 1012- CBG 122 1019- PT ASSISTED TO BACK FOR COMFORT, HEAD OF BED ELEVATED AND APPLE JUICE GIVEN FOR DROP IN BLOOD SUGAR. 1025- CONTINUE TO MONITOR PT, PT DENIES ANY NEEDS. PT DECLINES WATER AND CRACKERS. 1035- PT REPORTS HE FEELS GOOD AND WANTING TO GO HOME. ASSISTED TO SIDE OF BED. DENIES NAUSEA AND DIZZINESS. TOLERATED WELL. WILL CALL [employer] FOR RIDE HOME. 1038- LEFT MESSAGE FOR TRANSPORT. 1043- ATTEMPTED TO CONTACT [facility] FOR 2ND TIME, LEFT MESSAGE. 1050- CONTACTED [employer] FOR 3RD TIME, CHILD LIFE THERAPIST TO CONTACT TRANSPORT TO COME GET PT. UNKNOWN TIME. WILL LET STEEL FITTER KNOW WHEN THEY ARRIVE. PT BACK TO DAY SURGERY ROOM TO WATCH TV AND WAIT FOR RIDE. DECLINES FOOD AND DRINK.
--- NOTE | 2022-12-29 11:44 | OR ---
[facility] [address] [place], [place] [address] Signed DATE OF OPERATION: 12/29/2022 SURGEON: Mare Levin MD PREOPERATIVE DIAGNOSIS: Anemia. POSTOPERATIVE DIAGNOSES: 1. Mild gastritis, no evidence of upper gastrointestinal bleeding source. 2. Two small polyps of colon, otherwise normal. PROCEDURES: 1. Esophagogastroduodenoscopy with biopsy. 2. Total colonoscopy to cecum with cold morcellation polypectomy x2. ANESTHESIA: Intravenous sedation, propofol infusion, Dustin Nuñez, MICROBIOLOGY PROFESSOR INDICATIONS FOR THE PROCEDURE: This 67-year-old man is a patient of Dr. Persaud at [facility]. He has been identified as having anemia. He has no blood per rectum or hematemesis. He is admitted to undergo upper endoscopy and colonoscopy at this time to assess for possible sources of his anemia. He understands the risk of bleeding, infection, and perforation related to colonoscopy and upper endoscopy and wished to proceed. FINDINGS: Upper endoscopy showed no evidence of lesion to account for anemia. Biopsies of the duodenum were taken to assess for celiac disease. A potential, but unlikely source of anemia. He did have a poor flap valve and mild diffuse gastritis, but certainly no ulceration or neoplasm. On colonoscopy, the prep was good. Complete colonoscopy was undertaken of the cecum. There were two small polyps, one in the cecum and one in the left colon, both excised completely. DESCRIPTION OF PROCEDURE: The patient was brought to the surgical endoscopy suite and placed in lateral decubitus position, underwent topical hypopharyngeal lidocaine anesthesia. A bite block was placed as was oxygen face mask. He was given intravenous sedation with full cardiopulmonary monitoring by the janitor supervisor with propofol infusional technique. Electronically Signed By: MARE LEVIN MD 12/29/22 1144 PATIENT NAME: CHELO GANNON OPERATIVE REPORT DATE OF : 53 REPORT #: [id number] PHYSICIAN: MARE LEVIN MD PCP: SLY PERSAUD MD REPORT IS CONFIDENTIAL AND NOT TO BE RELEASED WITHOUT AUTHORIZATION [facility] [address] [place], [place] [address] Signed An Olympus video upper endoscope was passed into the hypopharynx. The vocal cords appeared normal. Scope was advanced to the esophagus throughout its length, it was normal. The scope was passed to the stomach, which was insufflated with air. Rugal folds were normal. The antrum was normal. Pylorus was normal. There was mild diffuse gastritis more proximally. The scope was passed through the pylorus into the duodenum, which was normal. Biopsies were then taken of the duodenum to assess for celiac disease. The scope was withdrawn. A biopsy was then taken of the antrum for both MIN and pathologic testing. Retroflexed view showed a more mildly inflamed proximal stomach, but no sign of ulceration or neoplasm. There was a poor flap valve, but no large hiatal hernia per se. The scope was withdrawn. Biopsy was then taken of distal esophagus in the mid esophagus. Scope was then removed. Plans were then made for colonoscopy. Additional sedation was given. Digital rectal examination performed, which showed minimal sphincter tone. An Olympus video colonoscope was passed into the rectum and manipulated throughout the colon ultimately intubating the cecum itself. The ileocecal valve and appendiceal orifice were normal. A small polyp of the cecum was noted, this was excised with cold morcellation technique. The scope was withdrawn and examination throughout showed no sign of abnormality until the left colon, where another small, probably adenomatous polyp was noted, this too was excised with cold morcellation technique. Further withdrawal showed no other abnormality. Retroflexed view showed internal hemorrhoidal changes. The scope was removed. The patient was taken to the recovery room in good condition. CONCLUDING DIAGNOSIS: No lesion specifically identified to account for anemia. Pathology report is pending. PLAN: He will return to the ongoing care of Dr. Persaud for further evaluation. MD YAMILEX Frederick/SAKINAL /[id number] cc: Sly Persaud MD Electronically Signed By: MARE LEVIN MD 12/29/22 1144 PATIENT NAME: CHELO GANNON OPERATIVE REPORT DATE OF : 53 REPORT #: [id number] PHYSICIAN: MARE LEVIN MD PCP: SLY PERSAUD MD REPORT IS CONFIDENTIAL AND NOT TO BE RELEASED WITHOUT AUTHORIZATION [facility] [address] [place], [place] [address] Signed Copies: SLY PERSAUD MD ~ Electronically Signed By: MARE LEVIN MD 12/29/22 1144 PATIENT NAME: ROSALIOLEEROYCHELO DONOVAN OPERATIVE REPORT DATE OF : 53 REPORT #: [id number] PHYSICIAN: MARE LEVIN MD PCP: SLY PERSAUD MD REPORT IS CONFIDENTIAL AND NOT TO BE RELEASED WITHOUT AUTHORIZATION
--- NOTE | 2023-01-03 10:20 | PATH ---
[facility] [address] [place], [place] [address] Signed SPECIMEN(S): A DUODENAL BIOPSY SPECIMEN(S): B ANTRUM/PYLORUS BIOPSY SPECIMEN(S): C DISTAL LOWER ESOPHAGEAL BIOPSY SPECIMEN(S): D MID ESOPHAGEAL BIOPSY SPECIMEN(S): E CECUM COLON POLYP SPECIMEN(S): F DESCENDING/LEFT COLON POLYP SPECIMEN SOURCE: A. DUODENAL BIOPSY B. ANTRUM/PYLORUS BIOPSY C. DISTAL LOWER ESOPHAGEAL BIOPSY D. MID ESOPHAGEAL BIOPSY E. CECUM COLON POLYP F. DESCENDING/LEFT COLON POLYP CLINICAL HISTORY: EGD/Colonoscopy, with possible biopsies. Iron deficiency anemia, constipation, negative colonoscopy 10 years ago. Postop: Small hiatal hernia, mild gastritis, polyps x2. FINAL PATHOLOGIC DIAGNOSIS: A. Duodenum, biopsy: - Duodenal mucosa with normal villous architecture. - Negative for acute, chronic, and granulomatous inflammation. - Negative for dysplasia and malignancy. B. Stomach, antrum/pylorus, biopsy: - Antral and non-acid secreting gastric mucosa with slight superficial chronic inflammation and slight vascular congestion. - No acute or active inflammation identified. - No H. pylori-like organisms identified on routine histologic sections. - Negative for intestinal metaplasia, dysplasia, and malignancy. C. Distal lower esophagus, biopsy: - Stratified squamous esophageal mucosa with very slight congestion in the rete pegs vessels. - Negative for acute, chronic, and eosinophilic inflammation. - No glandular epithelium identified. - Negative for dysplasia and malignancy. D. Mid esophagus, biopsy: - Stratified squamous esophageal mucosa with congestion in the rete pegs vessels. PATIENT NAME: CHELO GANNON PATHOLOGY DATE OF : 53 REPORT #: [id number] PHYSICIAN: ANDREA HANLEY PCP: SLY FLORES MD REPORT IS CONFIDENTIAL AND NOT TO BE RELEASED WITHOUT AUTHORIZATION [facility] [address] [place], [place] [address] Signed - Negative for acute, chronic, and eosinophilic inflammation. - Negative for dysplasia and malignancy. E. Cecal polyp, biopsy: - Portions of tubular adenoma; two of two pieces. - Negative for high-grade dysplasia and malignancy. F. Descending/left colon polyp, biopsy: - Hyperplastic polyp; one of two pieces. - Unremarkable colonic mucosa; one of two pieces. - Negative for dysplasia and malignancy. SDL MICROSCOPIC EXAMINATION: Histologic sections of all submitted blocks are examined by light microscopy. These findings, together with the gross examination, support the pathologic diagnosis. SDL GROSS DESCRIPTION: A. The specimen, labeled and designated "[place], duodenal biopsy," is received in formalin and consists of two spencer, soft tissue fragments ranging from 0.3-0.4 cm. Entirely submitted in (A1). B. The specimen, labeled and designated "[place], antrum/pylorus biopsy," is received in formalin and consists of three spencer, soft tissue fragments ranging from 0.1-0.4 cm. Entirely submitted in (B1). C. The specimen, labeled and designated "[place], distal lower esophageal biopsy," is received in formalin and consists of two spencer, soft tissue fragments ranging from 0.2-0.3 cm. Entirely submitted in (C1). D. The specimen, labeled and designated "[place], mid esophageal biopsy," is received in formalin and consists of one spencer, soft tissue fragment, 0.4 cm. Entirely submitted in (D1). E. The specimen, labeled and designated "[place], cecum colon polyp," is received in formalin and consists of two spencer, soft tissue fragments ranging from 0.2-0.3 cm. Entirely submitted in (E1). F. The specimen, labeled and designated "[place], descending/left colon polyp," is received in formalin and consists of two spencer, soft tissue fragments ranging from 0.1-0.3 cm. Entirely submitted in (F1). VB (under the direct supervision of a pathologist) The Gross Description was prepared using a voice recognition system. The report PATIENT NAME: CHELO GANNON PATHOLOGY DATE OF : 53 REPORT #: [id number] PHYSICIAN: ANDREA HANLEY PCP: SLY FLORES MD REPORT IS CONFIDENTIAL AND NOT TO BE RELEASED WITHOUT AUTHORIZATION [address] [address] Signed was reviewed for accuracy; however, sound-alike word errors, addition and/or deletions may occur. If there is any question about this report, please contact Client Services. PERFORMING LABORATORY: Technical component was performed by [facility], [address] [place] [id number] (CLIA# [id number]). Professional interpretation was performed by [facility], [address] [place] [id number] (CLIA#: [id number]). Diagnostician: Stacey Saldana MD Pathologist Electronically Signed 01/03/2023 Copies: ~ PATIENT NAME: CHELO GANNON PATHOLOGY DATE OF : 53 REPORT #: [id number] PHYSICIAN: ANDREA HANELY PCP: SLY FLORES MD REPORT IS CONFIDENTIAL AND NOT TO BE RELEASED WITHOUT AUTHORIZATION
== END 2022-12-29 11:55 | disposition home or self-care (01) ==
LOC: OPS 07:25 → DS 07:30 → OPS 08:30 → DS 10:00 → OPS 11:55
PROVIDERS: ATTEND Surgery
PROC: 0DB58ZX Excision of Esophagus, Via Natural or Artificial Opening Endoscopic, Diagnostic (ICD-10-PCS; 2022-12-29)
PROC: 0DBH8ZX Excision of Cecum, Via Natural or Artificial Opening Endoscopic, Diagnostic (ICD-10-PCS; 2022-12-29)
PROC: 0DBG8ZX Excision of Left Large Intestine, Via Natural or Artificial Opening Endoscopic, Diagnostic (ICD-10-PCS; 2022-12-29)
PROC: 0DB98ZX Excision of Duodenum, Via Natural or Artificial Opening Endoscopic, Diagnostic (ICD-10-PCS; principal; 2022-12-29 09:00)
PROC: 0DB68ZX Excision of Stomach, Via Natural or Artificial Opening Endoscopic, Diagnostic (ICD-10-PCS; 2022-12-29 09:00)
DX: D12.0 Benign neoplasm of cecum (principal); K63.5 Polyp of colon; K29.50 Unspecified chronic gastritis without bleeding; K22.89 Other specified disease of esophagus; D50.9 Iron deficiency anemia, unspecified; I10 Essential (primary) hypertension; F17.210 Nicotine dependence, cigarettes, uncomplicated; Z79.4 Long term (current) use of insulin; Z79.899 Other long term (current) drug therapy
CPT/HCPCS: 00813; 88305; J2001; J2704; J3010; J7121

== ENCOUNTER 2024-08-25 12:49 | Emergency (ER) | payer MEDICARE, OTHER ==
[~2024-08-25] VITALS: Ht 177.8 cm; Wt 103.5 kg
[2024-08-25] MEDS ORDERED: SODIUM CHLORIDE 0.9% 1,000 ML IV ONE (13:00)
[2024-08-25 13:08] LABS: EOSINOPHILS 1.3 % (0-6); HEMATOCRIT 37.4 % (35.0-50.0); HEMOGLOBIN 12.7 g/dL (12.0-18.0); LYMPHOCYTES 28.6 % (24-44); MCH 30.8 (27-36); MCV 90.7 fl (81-99); MONOCYTES 7.8 % (0-12); NEUTROPHILS 61.3 % (39-80); PLATELET COUNT 296 K/uL (140-440); RBC 4.12 M/ul (4.3-5.7); RDW 14.4 (10.5-15.0)
[2024-08-25 13:24] LABS: ALBUMIN 3.3 g/dL (3.4-5.0); ALBUMIN/GLOBULIN RATIO 0.72 (1.1-2.4); ANION GAP 10.8 (7-21); BILIRUBIN, TOTAL 0.5 mg/dL (0.2-1.0); BUN/CREATININE RATIO 11.19 (6.0-28.6); CREATININE, SERUM 1.34 mg/dL (0.70-1.30); MAGNESIUM 1.6 mg/dL (1.8-2.4); POTASSIUM 3.8 mmol/L (3.5-5.1); PROTEIN, TOTAL 7.9 g/dL (6.4-8.2)
[2024-08-25 16:29] VITALS: BP 160/76
--- NOTE | 2024-08-26 17:47 | EKG ---
[facility] [address] [facility] [place] [address] Signed Normal sinus rhythm Nonspecific ST and T wave abnormality Abnormal ECG When compared with ECG of 28-SEP-2022 15:59, premature ventricular complexes are no longer present Confirmed by Guido Calderon DO ([id number]) on 08/26/2024 5:47:22 PM Electronically Signed By: GUIDO CALDERON DO 08/26/24 1747 PATIENT NAME: TERESSACHELO Electrocardiogram DATE OF : 53 PHYSICIAN: GUIDO CALDERON DO REPORT #: [id number] REPORT IS CONFIDENTIAL AND NOT TO BE RELEASED WITHOUT AUTHORIZATION
== END 2024-08-25 16:31 | disposition home or self-care (01) ==
LOC: ED 12:49
PROVIDERS: Emergency Medicine
DX: R07.9 Chest pain, unspecified (principal); E78.5 Hyperlipidemia, unspecified; E11.42 Type 2 diabetes mellitus with diabetic polyneuropathy; F17.200 Nicotine dependence, unspecified, uncomplicated; Z79.82 Long term (current) use of aspirin; Z79.4 Long term (current) use of insulin; Z79.899 Other long term (current) drug therapy
CPT/HCPCS: 36415; 71045; 80053; 83735; 84484; 85025; 93005; 93010; 99285-25; J7030